=== PATIENT | female | born 1960 | race Caucasian/White ===

== ENCOUNTER 2018-09-25 16:37 | Outpatient (REF) | payer BC, SELFPAY ==
[2018-09-25 21:01] LABS: Abs Immature Grans 0.03 k/cumm (0.0-0.09); Absolute Basophil Count 0.05 k/cumm (0.0-0.2); Absolute Eosinophil Count 0.14 k/cumm (0.0-0.7); Absolute Monocyte Count 0.99 k/cumm (0.11-0.7); Absolute Neutrophil Count 7.16 k/cumm (1.2-6.7); Basophils % 0.5; Eosinophils % 1.4; HCT 43.3 % (36.0-46.0); HGB 14.8 g/dL (12.0-15.5); Immature Grans % 0.3; Lymphocytes % 18.5; Mean Corp. HGB Concentration 34.2 g/dL (32.0-36.0); Mean Corpuscular Hemoglobin 30.5 pg (27.0-33.0); Mean Corpuscular Volume 89.3 fL (80-95); Mean Platelet Volume 12.1 fL (8.0-11.0); Monocytes % 9.6; Neutrophils % 69.7; Platelet Count 215 x1000/uL (130-400); RBC 4.85 m/cumm (4.00-5.20); RBC Distribution Width 14.1 % (11.7-14.6); White Blood Cell Count 10.27 k/cumm (4.4-10.8)
[2018-09-25 21:31] LABS: Anion Gap 11.6 mmol/L (3-11); BUN 22 mg/dL (7-18); CO2 25.4 mmol/L (21.0-32.0); CREATININE 0.92 mg/dL (0.55-1.02); Calcium 9.8 mg/dL (8.5-10.1); Chloride 102 mmol/L (98-107); Glucose 190 mg/dL (70-100); Potassium 3.8 mmol/L (3.5-5.1); Sodium 139 mmol/L (136-145); Uric Acid 7.5 mg/dL (2.6-6.0)
== END 2018-09-25 16:57 ==
LOC: NCHCN 16:37
PROVIDERS: PCP Internal Medicine; Visit Provider Internal Medicine
DX: M10.9 Gout, unspecified (principal)
CPT/HCPCS: 80048; 84550; 85025

== ENCOUNTER 2019-01-06 12:10 | Outpatient (CLI) | payer BC, SELFPAY ==
--- NOTE | 2019-01-06 10:28 | DI.MAMMO_ITS ---
SYMPTOMS/DIAGNOSIS: SCREENING, Z12.31 MAMMOGRAMS: Mammograms were interpreted according to the usual protocol including computer analysis with CAD system, tomosynthesis and C view imaging. The breast tissue is of moderate radiodensity. There is no evidence of a mass. There are no suspicious calcifications and there has been no significant interval change when compared with prior images. SUMMARY: No evidence of malignancy, category 1. Yearly screening mammography is recommended. Breast density category B. SA ASSESSMENT OF FINDINGS: Negative. Category 1. Patient will receive a letter notifying them of these results. BI-RADS category B. There are scattered areas of fibroglandular density.
== END 2019-01-06 12:30 ==
PROVIDERS: PCP Internal Medicine; Visit Provider Nurse Practitioner Family
DX: Z12.31 Encounter for screening mammogram for malignant neoplasm of breast (principal)
CPT/HCPCS: 77063; 77067

== ENCOUNTER 2019-01-15 14:49 | Outpatient (CLI) | payer BC, SELFPAY ==
[2019-01-15 15:23] LABS: Abs Immature Grans 0.04 k/cumm (0.0-0.09); Absolute Basophil Count 0.05 k/cumm (0.0-0.2); Absolute Eosinophil Count 0.21 k/cumm (0.0-0.7); Absolute Lymphocyte Count 1.68 k/cumm (1.2-3.4); Absolute Monocyte Count 0.61 k/cumm (0.11-0.7); Absolute Neutrophil Count 4.23 k/cumm (1.2-6.7); Basophils % 0.7; Eosinophils % 3.1; HCT 41.8 % (36.0-46.0); HGB 14.2 g/dL (12.0-15.5); Immature Grans % 0.6; Lymphocytes % 24.6; Mean Corpuscular Hemoglobin 30.6 pg (27.0-33.0); Mean Corpuscular Volume 90.1 fL (80-95); Monocytes % 8.9; Neutrophils % 62.1; Platelet Count 213 x1000/uL (130-400); RBC 4.64 m/cumm (4.00-5.20); White Blood Cell Count 6.82 k/cumm (4.4-10.8)
[2019-01-15 15:31] LABS: PROTEIN 35.5 mg/dL
[2019-01-15 15:46] LABS: Albumin 3.9 g/dL (3.4-5.0); Anion Gap 9.8 mmol/L (3-11); BUN 20 mg/dL (7-18); CO2 27.2 mmol/L (21.0-32.0); CREATININE 0.78 mg/dL (0.55-1.02); Calcium 9.6 mg/dL (8.5-10.1); Chloride 102 mmol/L (98-107); Glucose 132 mg/dL (70-100); Potassium 4.4 mmol/L (3.5-5.1); Sodium 139 mmol/L (136-145)
[2019-01-15 16:01] LABS: COMMENT (LAB VIEW ONLY) 86.14 mg/dL; Prot/Crea Ur Ratio 0.41
== END 2019-01-15 15:09 ==
PROVIDERS: PCP Internal Medicine; Visit Provider Internal Medicine Nephrology
DX: N02.2 Recurrent and persistent hematuria with diffuse membranous glomerulonephritis (principal)
CPT/HCPCS: 36415; 80048; 82040; 82565; 84156; 85025; 86480

== ENCOUNTER 2019-02-24 11:40 | Outpatient (REF) | payer BC, SELFPAY ==
[2019-02-24 22:44] LABS: Hemoglobin A1C 7.5 % (4.5-6.2)
== END 2019-02-24 12:00 ==
LOC: NCHCN 11:40
PROVIDERS: PCP Internal Medicine; Visit Provider Internal Medicine
DX: R73.03 Prediabetes (principal)
CPT/HCPCS: 83036

== ENCOUNTER 2019-03-13 03:41 | Outpatient (CLI) | payer BC, SELFPAY ==
--- NOTE | 2019-03-13 09:00 | DIABASSESS_ITS ---
DESCRIPTION/ASSESSMENT: Gabbie Plasencia presents for diabetes self management focused on nutrition and prevention. She has had a recent increase in A1c from 6.3 to 7.5. She wishes to avoid medication for diabetes. Gabbie admits to being an emotional eater and has participated in OA and found it helpful, but difficult to get to meetings. She recognizes that her physical activity has decreased, and she needs to look at her portions. She has coffee, egg or cinnamon raising toast with buter for breakfast; tuna sandwich and fruit for lunch; salad, vegetable, starch, chicken or fish for supper. She snacks on cheese and almonds. She wants something to eat at 8:30PM. She admits to binge foods such as chips. She drinks selzer water. Gabbie walks 20 minutes most days and gets 10,000 steps 4 of 7 days a week. She is limited by leg pain which also affects her sleep. Leg pain is increased when she has over-done movement. INTERVENTION: Gabbie feels she knows the information but is interested in discussing her patterns and habits. Food Guidelines - reviewed food guide focused on adding vegetables for snacks. Discussed hunger/fullness and starting with normal portions. Physical Activity - discussed documenting her physical activity on a calendar to make her accomplishments concrete. Monitoring: She does not wish to monitor blood sugars at this time. Explained how it can be helpful. She will consider if A1c does not improve. ACTION PLAN: Track physical activity daily on calendar Watch carbohydrate intake; attempt to decrease Individual MN/T __2__ units billed TIME IN: 900 OUT: 0940 No DM group education series being offered at this time.
== END 2019-03-13 04:01 ==
PROVIDERS: PCP Internal Medicine; Visit Provider Dietitian, Registered
DX: E11.9 Type 2 diabetes mellitus without complications (principal); Z71.3 Dietary counseling and surveillance
CPT/HCPCS: 97802

== ENCOUNTER 2019-11-23 11:35 | Outpatient (REF) | payer BC, SELFPAY ==
[2019-11-23 22:29] LABS: BUN 24 mg/dL (7-18); CREATININE 0.82 mg/dL (0.55-1.02); Calcium 9.7 mg/dL (8.5-10.1); Chloride 104 mmol/L (98-107); Cholesterol 168 mg/dL (<200); Glucose 140 mg/dL (74-106); HDL Cholesterol 40 mg/dL (40-60); Sodium 140 mmol/L (136-145); Triglyceride 422 mg/dL (<150)
[2019-11-23 22:41] LABS: PROTEIN 45.9 mg/dL
[2019-11-23 22:42] LABS: COMMENT (LAB VIEW ONLY) 132.28 mg/dL; Prot/Crea Ur Ratio 0.34
[2019-11-23 22:44] LABS: LDL CHOLESTEROL 83 mg/dL (<100)
== END 2019-11-23 11:55 ==
LOC: NCHCN 11:35
PROVIDERS: PCP Internal Medicine; Visit Provider Internal Medicine
DX: E11.9 Type 2 diabetes mellitus without complications (principal); I10 Essential (primary) hypertension; E66.9 Obesity, unspecified
CPT/HCPCS: 80048; 80061; 83721; 82565; 83036; 84156

== ENCOUNTER 2019-12-01 00:23 | Outpatient (CLI) | payer BC, SELFPAY ==
[2019-12-01] MEDS: Normal Saline Flush 10 ML SYR IVP (10:33)
[2019-12-01] MEDS: Gadoterate meglumine 20 ML VIAL 16 ML IVP (10:34)
--- NOTE | 2019-12-01 10:50 | DI.MRI_ITS ---
EXAM: MR BRAIN WO/W CLINICAL HISTORY: MULTIPLE SCLEROSIS, G34, MONITOR TECHNIQUE: Multiplanar multisequence MRI of the brain was performed. CONTRAST MATERIAL: IV Contrast: 16 ML of Dotarem contrast administered. COMPARISON: MRI - BRAIN W/WO CONTRAST from 01/07/2013 MRI - BRAIN W/WO CONTRAST from 09/17/2017 FINDINGS: VENTRICLES AND EXTRA AXIAL SPACES: Normal in size and morphology for the patient's age. HEMORRHAGE: None. CEREBRAL PARENCHYMA: No focus of restricted diffusion to suggest acute infarct. 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 No space-occupying lesion identified. There are again se en multiple areas of hyperintense T2 signal predominantly in the periventricular white matter. There are areas in the bishop radiata which appear slightly larger and more confluent compared to the prio r examination. No new lesions are identified. MIDLINE SHIFT: None. BRAINSTEM/CEREBELLUM: Normal. CALVARIUM: Normal. ENHANCEMENT: No suspicious enhancement identified. VISUALIZED PARANASAL SINUSES/MASTOIDS: Clear. [place]: Normal flow void. [place]IT[place]: Unremarkable. OTHER FINDINGS: None. IMPRESSION: Multiple foci of T2 hyperintensity in the white matter consistent with the patient's known diagnosis of MS. There are areas in the bishop radiata which appear slightly larger and more confluent compared to the prior examinations. No new or enhancing lesions are identified. DATA REPOSITORY:
== END 2019-12-01 00:43 ==
PROVIDERS: PCP Internal Medicine; Visit Provider Psychiatry & Neurology Neurocritical Care
DX: G35 Multiple sclerosis (principal); R90.82 White matter disease, unspecified
CPT/HCPCS: 70553; 82565

== ENCOUNTER 2020-01-27 09:56 | Outpatient (REF) | payer BC, SELFPAY ==
[2020-01-27 20:59] LABS: Anion Gap 7.5 mmol/L (3-11); BUN 21 mg/dL (7-18); CO2 28.5 mmol/L (21.0-32.0); CREATININE 0.95 mg/dL (0.55-1.02); Calcium 9.9 mg/dL (8.5-10.1); Chloride 103 mmol/L (98-107); Glucose 150 mg/dL (74-106); Potassium 4.3 mmol/L (3.5-5.1); Sodium 139 mmol/L (136-145)
== END 2020-01-27 10:16 ==
LOC: NCHCN 09:56
PROVIDERS: PCP Internal Medicine; Visit Provider Internal Medicine
DX: I10 Essential (primary) hypertension (principal)
CPT/HCPCS: 80048

== ENCOUNTER 2020-02-23 11:00 | Outpatient (REF) | payer BC, SELFPAY ==
--- NOTE | 2020-02-23 10:30 | PAPFT_PTH ---
PATIENT: Marcie Plasencia LOC: [facility] U#:[id number] AGE/SX: 59/F ROOM: RE02/23/[address]: NAMITA Mcguire : 1960 BED: DIS: 02/23/2020 SPEC #: [id number] RECD: 02/23/20 13:11 STATUS: LASHELL REQ #: [id number] HERNANDO: 02/23/20 10:[address]: Citlaly Pa DEPT: [facility] Cytology RECD BY: Carolina Choe ENTERED: 02/23/20 13:12 SP TYPE: PAPFT OTHR DR: Raul Nash Tissues: 1 - CX/ENDOCX FOR PAP SMEARS Procedures: PAP THIN PREP/UVM Screening HPV DNA PROBE Comments: [id number]
== END 2020-02-23 11:20 ==
LOC: LBN 11:00
PROVIDERS: PCP Internal Medicine; Visit Provider Nurse Practitioner Family
DX: Z12.4 Encounter for screening for malignant neoplasm of cervix (principal)
CPT/HCPCS: 88142; 87624

== ENCOUNTER 2020-07-14 04:02 | Outpatient (CLI) | payer BC, SELFPAY ==
[2020-07-14 17:17] LABS: Abs Immature Grans 0.06 10^3/uL (0.0-0.06); Absolute Basophil Count 0.09 10^3/uL (0.0-0.2); Absolute Eosinophil Count 0.22 10^3/uL (0.0-0.7); Absolute Lymphocyte Count 1.52 10^3/uL (1.2-3.4); Absolute Monocyte Count 0.75 10^3/uL (0.1-0.8); Basophils % 1.2; HCT 40.4 % (36.0-46.0); HGB 13.6 g/dL (11.2-15.7); Immature Grans % 0.8; Lymphocytes % 20.7; MCH 30.9 pg (27.0-33.0); MCHC 33.7 % (32.0-36.0); MCV 91.8 fL (80-95); MPV 11.4 fL (8.0-11.0); Monocytes % 10.2; Neutrophils % 64.1; Nucleated RBC 0 %; Platelet Count 232 10^3/uL (130-400); RDW 13.2 % (11.7-14.6); RDW-SD 44.9 fL; WBC 7.34 10^3/uL (4.4-10.8)
[2020-07-14 17:34] LABS: PROTEIN 25.1 mg/dL
[2020-07-14 17:48] LABS: COMMENT (LAB VIEW ONLY) 39.92 mg/dL; Prot/Crea Ur Ratio 0.62
[2020-07-14 18:21] LABS: Albumin 4.1 g/dL (3.4-5.0); Anion Gap 8.1 mmol/L (3-11); BUN 18 mg/dL (7-18); CO2 25.9 mmol/L (21.0-32.0); CREATININE 0.89 mg/dL (0.55-1.02); Calcium 9.7 mg/dL (8.5-10.1); Chloride 102 mmol/L (98-107); Glucose 211 mg/dL (74-106); Potassium 3.8 mmol/L (3.5-5.1); Sodium 136 mmol/L (136-145)
[2020-07-19 12:44] LABS: Misc Referral (MAYO) See Comments
== END 2020-07-14 04:22 ==
PROVIDERS: PCP Internal Medicine; Visit Provider Internal Medicine Nephrology
DX: N02.2 Recurrent and persistent hematuria with diffuse membranous glomerulonephritis (principal)
CPT/HCPCS: 36415; 80048; 83520; 86255; 82040; 82565; 84156; 85025

== ENCOUNTER 2020-08-03 13:40 | Outpatient (REF) | payer BC, SELFPAY ==
[2020-08-08 13:57] LABS: Patient Race White; SARS-CoV-2 RNA Undetected (Undetected); SARS-CoV-2 Specimen Source Nasal
== END 2020-08-03 14:00 ==
LOC: NCHCN 13:40
PROVIDERS: PCP Internal Medicine; Visit Provider Internal Medicine
DX: Z20.828 Contact with and (suspected) exposure to other viral communicable diseases (principal)
CPT/HCPCS: U0003

== ENCOUNTER 2020-08-11 01:17 | Outpatient (CLI) | payer BC, SELFPAY ==
--- NOTE | 2020-08-11 07:30 | DI.MAMMO_ITS ---
EXAM: MG MAMMO SCREENING CLINICAL HISTORY: screening,Z12.39 TECHNIQUE: Bilateral full field digital CC and MLO mammographic images were obtained with 3D tomosyn thesis and utilizing computer aided detection (CAD). COMPARISON: Available for comparison. FINDINGS: Masses/Architectural Distortion: There is again seen an asymmetric density in the central left breast on the mediolateral oblique view. No suspicious masses or areas of architectural distortion are see n. Microcalcifications: No suspicious pleomorphic-type are seen. Skin Thickening/Nipple Retraction: None. IMPRESSION: 1. No significant interval change with no specific features of malignancy noted. 2. Unless there is more urgent need, screening mammography is recommended, as per [place] [employer] guidelines. BI-RADS Category 2 - Benign Findings Breast Density - Category B - Scattered areas of fibroglandular density A negative radiographic report should not delay biopsy if a dominant or clinically suspicious mass is present. Up to ten percent of cancers are not identified on mammography. A negative report may reinforce clinical impression. Adenosis and dense breasts may obscure an underlying neoplasm. False positive reports average 6 to 10%. Patient will receive a letter notifying them of these results.
== END 2020-08-11 01:37 ==
PROVIDERS: PCP Internal Medicine; Visit Provider Nurse Practitioner Family
DX: Z12.31 Encounter for screening mammogram for malignant neoplasm of breast (principal); R92.8 Other abnormal and inconclusive findings on diagnostic imaging of breast
CPT/HCPCS: 77063; 77067

== ENCOUNTER 2021-03-09 09:32 | Outpatient (REF) | payer BC, SELFPAY ==
[2021-03-09 13:21] LABS: Calculated LDL 50 mg/dL (<100); Cholesterol 151 mg/dL (<200); HDL Cholesterol 53 mg/dL (40-60); Triglyceride 244 mg/dL (<150)
== END 2021-03-09 09:33 | disposition home or self-care (01) ==
LOC: NCHCN 09:32
PROVIDERS: PCP Internal Medicine; Visit Provider Internal Medicine
DX: Z13.220 Encounter for screening for lipoid disorders (principal)
CPT/HCPCS: 80061

== ENCOUNTER 2021-08-15 00:52 | Outpatient (CLI) | payer BC, SELFPAY ==
--- NOTE | 2021-08-15 15:46 | DI.MAMMO_ITS ---
Exam(s) MAMMO SCREENING EXAM: MAMMO SCREENING CLINICAL HISTORY: screening,Z12.39 TECHNIQUE: Mammograms were interpreted according to the usual protocol including computer analysis w ColoWrap CAD system, tomosynthesis and C-view imaging. COMPARISON: FINDINGS: Breasts are of moderate density with fairly symmetrical distribution of fibroglandular tissue. No do minant mass is identified in either breast. There is an area of nodularity projected in the lateral retroareolar portion of the left breast about 4-5 cm from the nipple in both CC and MLO projections. This has probably lobulated margins and contains multiple microcalcifications, faint nodularity was present on prior examination of July 2020 but there is increased size of the area of nodularity a nd increased number of microcalcifications, which are indeterminate in morphology. No other lesion identified in either breast, no other change seen. Additional evaluation with magnification spot compression views and ultrasound of the left breast req uested to evaluate the possibility of malignancy. IMPRESSION: Additional mammographic views left breast and left breast ultrasound requested as described above. BI-RADS Category 0 - Assessment Incomplete: Need additional imaging evaluation Breast Density - Category B - Scattered areas of fibroglandular density
== END 2021-08-15 01:12 ==
PROVIDERS: PCP Internal Medicine; Visit Provider Nurse Practitioner Family
DX: Z12.31 Encounter for screening mammogram for malignant neoplasm of breast (principal); R92.8 Other abnormal and inconclusive findings on diagnostic imaging of breast
CPT/HCPCS: 77063; 77067

== ENCOUNTER 2021-09-08 02:17 | Outpatient (CLI) | payer BC, SELFPAY ==
--- NOTE | 2021-09-08 | DI.US_ITS ---
Exam(s) MG MAMMO SCREEN CALL BACK UNI US BREAST LT LIMITED EXAM: MG MAMMO SCREEN CALL BACK UNI and U/S breast LT limited CLINICAL HISTORY: F/U TO ABNL MAMMO, NODULARITY LT BREAST. TECHNIQUE: Craniocaudal and mediolateral oblique Full Field Digital Mammography views of the left br east with Computer Aided Diagnosis followed by Tomosynthesis and left breast ultrasound. COMPARISON: Priors available for comparison. FINDINGS: Mammography/Tomosynthesis: Masses/Architectural Distortion: There has been no change in size of an ovoid density in the retroare olar region of the left breast. There are punctate calcifications seen in the retroareolar region of the left breast which appears stable including some associated with the nodule. Microcalcifictions: No suspicious pleomorphic-type are seen. Skin Thickening/Nipple Retraction: None. Left breast US: Targeted left breast ultrasound was performed. Echotexture: Normal appearance of the glandular tissue. Shadowing: No suspicious foci. Cyst: There is a collection of cysts at 3 o'clock 4 cm from the nipple measuring 0.3 x 0.2 x 0.4 cm i n aggregate. Solid lesions: None seen. Ductal dilation: None. IMPRESSION: 1. No deaf evidence of malignancy is noted. 2. A follow-up left mammogram in 6 months is recommended to monitor stability.. 3. The findings were discussed with the patient on the date of the examination. BI-RADS Category 3 - 6 month - Probably Benign Finding: Recommend follow-up imaging in 6 months Breast Density - Category B - Scattered areas of fibroglandular density Breast density Category C or D implies that the patient has dense breast tissue. Dense breast tissue can make it harder to find cancer on a mammogram. Dense breast tissue is also associated with an incr eased risk of breast cancer. This information about the result of the mammogram report was provided to the patient to raise their awareness. Use this report when you speak with the patient about their risks for breast cancer, which includes their family history. At that time, you may recommend additional screening tests (Ultrasoun d or MRI) as these tests may add significant information. A negative radiographic report should not delay biopsy if a dominant or clinically suspicious mass is present. Up to ten percent of cancers are not identified on mammography. A negative report may reinforce clinical impression. Adenosis and dense breasts may obscure an underlying neoplasm. False positive reports average 6 to 10%. Patient will receive a letter notifying them of these results.
== END 2021-09-08 02:37 ==
PROVIDERS: PCP Internal Medicine; Visit Provider Nurse Practitioner Family
DX: Z12.31 Encounter for screening mammogram for malignant neoplasm of breast (principal); R92.8 Other abnormal and inconclusive findings on diagnostic imaging of breast
CPT/HCPCS: 76642; 77063; 77067

== ENCOUNTER 2021-11-06 10:26 | Outpatient (REF) | payer BC, SELFPAY ==
[2021-11-06 19:13] LABS: COMMENT (LAB VIEW ONLY) 93.31 mg/dL; PROTEIN 494.3 mg/dL; Prot/Crea Ur Ratio 5.29
== END 2021-11-06 10:27 | disposition home or self-care (01) ==
LOC: NCHCN 10:26
PROVIDERS: PCP Internal Medicine; Visit Provider Internal Medicine
DX: E11.9 Type 2 diabetes mellitus without complications (principal)
CPT/HCPCS: 82565; 84156

== ENCOUNTER 2021-11-13 16:15 | Outpatient (REF) | payer BC, SELFPAY ==
[2021-11-13 14:41] LABS: Anion Gap 10.6 mmol/L (3-11); BUN 20 mg/dL (7-18); CO2 23.4 mmol/L (21.0-32.0); CREATININE 0.8 mg/dL (0.55-1.02); Calcium 9.3 mg/dL (8.5-10.1); Chloride 105 mmol/L (98-107); Glucose 147 mg/dL (74-106); Potassium 4.3 mmol/L (3.5-5.1); Sodium 139 mmol/L (136-145)
== END 2021-11-13 16:16 | disposition home or self-care (01) ==
LOC: NCHCN 16:15
PROVIDERS: PCP Internal Medicine; Visit Provider Internal Medicine
DX: E11.9 Type 2 diabetes mellitus without complications (principal); I10 Essential (primary) hypertension
CPT/HCPCS: 80048

== ENCOUNTER 2022-01-30 01:38 | Outpatient (CLI) | payer BC, SELFPAY ==
[2022-01-30 13:08] LABS: Abs Immature Grans 0.04 10^3/uL (0.0-0.06); Absolute Basophil Count 0.08 10^3/uL (0.0-0.2); Absolute Eosinophil Count 0.35 10^3/uL (0.0-0.7); Absolute Lymphocyte Count 1.87 10^3/uL (1.2-3.4); Absolute Monocyte Count 0.55 10^3/uL (0.1-0.8); Absolute Neutrophil Count 4.96 10^3/uL (1.2-6.7); Eosinophils % 4.5; HCT 43.3 % (36.0-46.0); HGB 14.3 g/dL (11.2-15.7); Immature Grans % 0.5; Lymphocytes % 23.8; MCH 29.7 pg (27.0-33.0); MCV 90 fL (80-95); MPV 11.6 fL (8.0-11.0); Neutrophils % 63.2; Platelet Count 236 10^3/uL (130-400); RBC 4.82 10^6/uL (3.93-5.22); RDW 13.2 % (11.7-14.6); RDW-SD 43.6 fL; WBC 7.85 10^3/uL (4.4-10.8)
[2022-01-30 13:08] LABS: Bilirubin Negative (Negative); Blood Small (Negative); Clarity Clear (Clear); Glucose Negative (Negative); Ketones Negative (Negative); Leukocyte Esterase Negative (Negative); Nitrite Negative (Negative); Specific Gravity 1.025 (1.005-1.025); Urobilinogen 0.2 EU/dL (Up TO 0.2); pH 5.5 (5-8)
[2022-01-30 13:16] LABS: Epithelial Cells Few HPF (Negative); RBC 0-2 HPF (0-2)
[2022-01-30 13:17] LABS: Bacteria Few HPF (Negative); C & S Indicated? Yes; Crystals Negative HPF (Negative); Mucus Moderate (Negative); Other Cells Rare Renal (Negative)
[2022-01-30 14:37] LABS: Albumin 3.1 g/dL (3.4-5.0); Anion Gap 12.1 mmol/L (3-11); BUN 19 mg/dL (7-18); CO2 25.9 mmol/L (21.0-32.0); CREATININE 0.8 mg/dL (0.55-1.02); Calcium 8.7 mg/dL (8.5-10.1); Chloride 104 mmol/L (98-107); Glucose 180 mg/dL (74-106); Potassium 3.8 mmol/L (3.5-5.1); Sodium 142 mmol/L (136-145)
[2022-01-30 14:49] LABS: COMMENT (LAB VIEW ONLY) 132.93 mg/dL
[2022-01-30 14:57] LABS: PROTEIN > 1000.0 mg/dL
[2022-02-02 16:48] LABS: Phospholipase A2 Receptor IFA Positive (Negative); Phospholipase A2Receptor ELISA <2 RU/mL
== END 2022-01-30 01:39 | disposition home or self-care (01) ==
PROVIDERS: PCP Internal Medicine; Visit Provider Nurse Practitioner
DX: N02.2 Recurrent and persistent hematuria with diffuse membranous glomerulonephritis (principal); N18.9 Chronic kidney disease, unspecified
CPT/HCPCS: 36415; 80048; 83520; 86255; 81003; 81015; 82040; 82565; 84156; 85025; 87086

== ENCOUNTER 2022-04-14 12:35 | Emergency (ER) | payer BC, SELFPAY ==
[2022-04-14] VITALS (8 sets, daily range): BP systolic 114–133; BP diastolic 70–83; PULSE 88–111; RESP 13–21; TEMP 37.2; O2SAT 91–95
--- NOTE | 2022-04-14 13:15 | DI.RAD_ITS ---
Exam(s) XR HUMERUS LT EXAM: XR HUMERUS LT CLINICAL HISTORY: fall pushed by horse. TECHNIQUE: 2D digital imaging was performed of the left humerus. One images were obtained. Lateral views were obtained. COMPARISON: CR,XR XR SHOULDER LT COMPLETE 2+V from 04/14/2022 FINDINGS: BONES: The comminuted fracture of the greater tuberosity is present. SOFT TISSUE: Normal. IMPRESSION: This is a single lateral view which is limited due to the overlying body. The greater tuberosity fra cture appears visualized. DATA REPOSITORY: RADIATION DOSE DELIVERED:
--- NOTE | 2022-04-14 13:15 | DI.RAD_ITS ---
Exam(s) XR SHOULDER LT COMPLETE 2+V EXAM: XR SHOULDER LT COMPLETE 2+V CLINICAL HISTORY: pushed over by horse, concern for dislocation/fxt. TECHNIQUE: 2D digital imaging was performed of the left shoulder. Three images were obtained. AP, Grashey, and Y-view views were obtained. COMPARISON: No exams were available for comparison FINDINGS: BONES: There is an acute comminuted and displaced fracture of the greater tuberosity. No bony destru ctive lesion is seen. JOINTS: There is an anterior left shoulder dislocation. Mild degenerative changes are seen at the ac romioclavicular joint. SOFT TISSUE: Normal. IMPRESSION: There is a left anterior shoulder dislocation with a comminuted displaced fracture involving the grea ter tuberosity. DATA REPOSITORY: RADIATION DOSE DELIVERED:
--- NOTE | 2022-04-14 13:15 | DI.RAD_ITS ---
Exam(s) XR FOREARM LT EXAM: XR FOREARM LT CLINICAL HISTORY: fall pushed by horse. TECHNIQUE: 2D digital imaging was performed of the left forearm. Two views were obtained. AP and l ateral views were obtained. COMPARISON: No exams were available for comparison FINDINGS: BONES: No acute fracture is present. No bony destructive lesion is seen. Visualized portion of elbow and wrist joints are unremarkable. SOFT TISSUE: Normal. IMPRESSION: Unremarkable radiographs of the left forearm. DATA REPOSITORY: RADIATION DOSE DELIVERED:
--- NOTE | 2022-04-14 13:26 | ED.GENADUL_ITS ---
Discharge Plan Disposition Patient Disposition: HOME Condition: Improving Discharge Details Clinical Impression: Dislocated shoulder, Hill Sachs deformity Primary Care Provider: Raul Nash ED Provider: Logan Valle Home Meds and New Rx's Prescriptions: No Action atorvastatin 10 mg tablet 10 mg PO DAILY losartan 100 mg tablet 100 mg PO DAILY amlodipine 10 mg tablet 10 mg PO DAILY cholecalciferol (vitamin D3) 25 mcg (1,000 unit) capsule 25 mcg PO DAILY bupropion HCl 150 mg tablet extended release 24 hr 150 mg PO QAM furosemide 20 mg tablet 20 mg PO DAILY metformin 500 mg tablet 500 mg PO BID Discharge Instructions Instructions: Shoulder Dislocation (ED) Additional Instructions: Please follow-up with orthopedic surgery as scheduled. Please return to the emergency department develop worsening pain change in color temperature strength or sensation of your arm or develop any other abnormal symptoms. Medical Decision Making 61-year-old female presents after being knocked over by a horse, with standing on the ground knocked over onto her left side, landed on her left shoulder, pain to left shoulder, extremity in splint; neurovascular exam of limb intact, range of motion of fingers and wrist intact range of motion at shoulder limited by theodore n, median radial ulnar nerve distribution intact sensory, radial pulse intact, warm well perfused, alert and oriented no thoracoabdominal trauma no head or neck injury. Concern for left shoulder dislocation versus proximal humeral fracture versus contusion. Patient was given fentanyl in the field feeling comfortable at the moment, will perform x-ray, will dose pain meds as needed close reassessment 16: 04 attempted reduction with analgesia and anxiolysis using fentanyl and Ativan as well as lidocaine 1% intra-articular injection, unsuccessful due to pain. Decision was made to perform procedural sedation under propofol 1 mg/kg, initial bolus of 0.5 mg/kg given patient still feeling painful stimuli and alert and interactive, the remaining 0.5 mg/kg was administered with appropriate level of sedation, countertraction with a sheet was applied, downward traction to affected limb and external rotation was applied, palpable clunk and palpable and visual improvement noted to left shoulder. Patient placed in sling, awaiting confirmatory postreduction x-ray. Once patient returns to baseline will be discharged home into family's custody and will be given orthopedic follow-up within the next week HPI General Date/Time Provider Initiated Documentation: 04/14/22 12:54 . HPI Narrative: 61-year-old female endorses being knocked over by a horse that she was cleaning today, fell onto her left shoulder no loss of conscious, pain to proximal left shoulder. Denies blood thinner use. Denies other trauma. Related Data Home Medications Medication Instructions Recorded Confirmed bupropion HCl 150 mg 24 hr tablet, 150 mg PO QAM 02/23/20 04/14/22 extended release furosemide 20 mg tablet 20 mg PO DAILY 02/23/20 04/14/22 amlodipine 10 mg tablet 10 mg PO DAILY 07/04/21 04/14/22 atorvastatin 10 mg tablet 10 mg PO DAILY 07/04/21 04/14/22 cholecalciferol (vitamin D3) 25 25 mcg PO DAILY 07/04/21 04/14/22 mcg (1,000 unit) capsule losartan 100 mg tablet 100 mg PO DAILY 07/04/21 04/14/22 metformin 500 mg tablet 500 mg PO BID 04/11/22 04/14/22 Allergies Allergy/AdvReac Type Severity Reaction Status Date / Time No Known Drug Allergies Allergy Verified 04/14/22 12:47 General Stated Complaint: Orthopedic JAKE: 4 Review of Systems Narrative: Review of Systems Constitutional: negative Eyes: negative ENT: negative Cardiovascular: negative Respiratory: negative Gastrointestinal: negative : negative Musculoskeletal: Left shoulder pain Skin: negative Neurologic: negative Psych: negative PFSH All Active Problems (Updated 04/14/22 @ 16:59 by Logan Valle MD) Dislocated shoulder (Acute) Hill Sachs deformity (Acute) Chronic kidney disease (Chronic) Skin lesion (Acute) Lateral side of her left great toe 96 Diabetes (Chronic) Elevated blood sugar (Acute) Nephropathy (Acute 08/07/13) Multiple sclerosis (Acute 02/28/12) Unspecified essential hypertension (Acute 08/07/13) Medical History (Updated 04/14/22 @ 16:59 by Logan Valle MD) Anxiety and depression Surgical History (Updated 07/09/18 @ 14:34 by [employer] DC) section X 2 Family History Mother Diabetes Heart disease Father Essential hypertension Kidney stones Grandmother Breast cancer maternal Maternal Aunt Breast cancer maternal Social History (Updated 09/02/18 @ 14:37 by Citlaly Pa NP) Smoking/Tobacco Use Status: Former Tobacco Use Smoking risk assessment performed?: Yes Substance use type: does not use current occupation: [employer] Do you feel safe at home: Yes Do you feel safe in your relationship?: Yes History History 3 Para 2 Hx # Term Pregnancies Multiple births Hx # Pregnancies Ectopic pregnancies AB induced Hx Number of Living Children AB spontaneous Exam Narrative Exam Narrative: Physical Examination General: alert, awake, cooperative, resting comfortably, no acute distress HEENT: normocephalic, atraumatic; PERRL, EOM intact, conjunctiva normal; no nasal discharge; moist mucous membranes, oral and pharyngeal mucosa normal, tolerating secretions Neck: supple, trachea midline; full ROM Chest: normal to inspection Respiratory: normal respiratory effort, speaking in full sentences, clear to auscultation, no wheezing, rales or rhonchi Cardiac: regular rate, regular rhythm, S1S2 intact, no murmurs rubs or gallops GI: abdomen soft, non-tender, non-distended; no palpable mass or hepatosplenomegaly Skin: no lesions, rashes or trauma appreciated Neuro: AAOx3, normal speech, moving all extremities Extremities: Left upper extremity in sling, lack of fullness to the left shoulder concerning for dislocation, radial pulse intact median radial ulnar nerve distribution sensation intact, warm well perfused extremity Psych: Appropriate mood and affect Course Vital Signs Vital signs: Vital Signs Temperature 37.2 C 04/14/22 12:44 Pulse 95 H 04/14/22 12:44 Respiratory Rate 16 04/14/22 12:44 Blood Pressure 125/73 04/14/22 12:44 Pulse Oximetry 94 04/14/22 12:44 Temperature 37.2 C 04/14/22 12:44 Temperature Source Temporal Artery Scan 04/14/22 12:44 Pulse 95 H 04/14/22 12:44 Respiratory Rate 16 04/14/22 12:44 Respiratory Effort 04/14/22 12:47 Blood Pressure 125/73 04/14/22 12:44 Blood Pressure Position Supine 04/14/22 12:44 Pulse Oximetry 94 04/14/22 12:44 Oxygen Delivery Method Room Air 04/14/22 12:44 Oxygen Flow Rate 0 04/14/22 12:44 Pain Level 8 04/14/22 12:44 Procedures Procedural Sedation Indication: fracture/dislocation reduction Presedation Evaluation: left shoulder dislocation with hill sachs ASA Class: II Preparation: vehicle monitor technician applied, pulse oximeter, capnometry used, supplemental O2 applied, suction/airway equipment at bedside and IV secured IV Propofol dose (mg): 80 Patient Tolerated Procedure: well Complications: none Interventions: oxygen applied Additional Comments: initial bolus of 40mg given, limited sedation obtained, painful stimuli still present; remaining 40 mg given with appropriate sedation obtained
--- NOTE | 2022-04-14 14:09 | DI.VRAD_ITS ---
PROCEDURE INFORMATION: Exam: XR Left Shoulder Exam date and time: 04/14/2022 1:29 PM Age: 61 years old Clinical indication: Injury or trauma; Other: Pushed over by horse, concern for dislocation/fxt; Dislocation and fracture, traumatic injury; Closed fracture; Shoulder; Left; Humerus; Prior surgery TECHNIQUE: Imaging protocol: Radiologic exam of the Left shoulder. Views: 2 or more views. COMPARISON: CR CHEST 2 VIEWS PA,LAT 19/12/2015 08:02 FINDINGS: Bones/joints: Anterior dislocated shoulder. Comminuted Hill-Sachs fracture. Possible Bankart fracture. Lungs: Reticular markings left base. Soft tissues: Unremarkable. IMPRESSION: 1. Anterior dislocation fracture left shoulder. 2. Reticular markings left base consistent with atelectasis or developing infiltrate. Dictated and Authenticated by: Jazmine Nieto MD. Ordering:JASON Ford MD
--- NOTE | 2022-04-14 14:22 | DI.VRAD_ITS ---
PROCEDURE INFORMATION: Exam: XR Left Forearm Exam date and time: 04/14/2022 1:40 PM Age: 61 years old Clinical indication: Pain; Lower or forearm; Left; Patient HX: Pushed over by horse, concern for dislocation/fxt TECHNIQUE: Imaging protocol: Radiologic exam of the Left forearm. Views: 2 views. COMPARISON: No relevant prior studies available. FINDINGS: Bones/joints: Unremarkable. Soft tissues: Unremarkable. IMPRESSION: No evidence for acute bony injury. If clinical symptoms persist recommend followup film in 7-10 days. Dictated and Authenticated by: Jazmine Nieto MD. Ordering:JASON Ford MD
--- NOTE | 2022-04-14 14:28 | DI.VRAD_ITS ---
PROCEDURE INFORMATION: Exam: XR Left Humerus Exam date and time: 04/14/2022 1:36 PM Age: 61 years old Clinical indication: Pain; Upper arm; Left; Patient HX: Pushed over by horse, concern for dislocation/fxt TECHNIQUE: Imaging protocol: Radiologic exam of the Left humerus. Views: One-view lateral. COMPARISON: CR XR SHOULDER LT COMPLETE 2+V 14/04/2022 13:29 FINDINGS: Limitations: Only a single lateral view was submitted. Bone details obscured by overlying body. There is no AP view of the humerus. Bones/joints: Known anterior dislocation of the humerus. Known Hill-Sachs comminuted fracture deformity. There is no AP view of the distal humerus. Soft tissues: Unremarkable. IMPRESSION: Limited single lateral view of the humerus. Limitations as discussed above. Known Hill-Sachs fracture noted on shoulder view. Dictated and Authenticated by: Jazmine Nieto MD. Ordering:JASON Ford MD
[2022-04-14] MEDS: LORazepam 20 MG/10 ML VIAL IVP (15:00)
[2022-04-14] MEDS: fentaNYL 100 MCG/2 ML VIAL 50 MCG IVP (15:00)
--- NOTE | 2022-04-14 15:45 | DI.RAD_ITS ---
Exam(s) XR SHOULDER LT COMPLETE 2+V EXAM: XR SHOULDER LT COMPLETE 2+V CLINICAL HISTORY: post reduction. TECHNIQUE: 2D digital imaging was performed of the left shoulder. Two images were obtained. AP and Y views were obtained. COMPARISON: CR,XR XR SHOULDER LT COMPLETE 2+V from 04/14/2022 FINDINGS: BONES: There is again seen a comminuted Hill-Sachs fracture. No bony destructive lesion is seen. JOINTS: No dislocation present. There has been successful reduction of the prior anterior shoulder di slocation. SOFT TISSUE: Normal. IMPRESSION: 1. Successful reduction of the prior anterior shoulder dislocation. 2. Comminuted Hill-Sachs fracture. DATA REPOSITORY: RADIATION DOSE DELIVERED:
[2022-04-14] MEDS: Propofol 200 MG/20 ML VIAL 80 MG IVP (15:54)
--- NOTE | 2022-04-14 16:22 | DI.VRAD_ITS ---
PROCEDURE INFORMATION: Exam: XR Left Shoulder Exam date and time: 04/14/2022 3:48 PM Age: 61 years old Clinical indication: Pain; Shoulder; Left; Patient HX: Post reduction TECHNIQUE: Imaging protocol: Radiologic exam of the Left shoulder. Views: 2 or more views. COMPARISON: CR XR SHOULDER LT COMPLETE 2+V 14/04/2022 13:29 FINDINGS: Bones/joints: Post reduction shoulder dislocation. Hill-Sachs fracture. Lungs: Persistent reticular markings left base consistent with atelectasis or developing infiltrate. Soft tissues: Soft tissue swelling. IMPRESSION: 1. Post reduction shoulder. Hill-Sachs fracture deformity. 2. Reticular markings left base consistent with atelectasis or developing infiltrate. Dictated and Authenticated by: Jazmine Nieto MD. Ordering:GRISELDA Figueroa MD
--- NOTE | 2022-04-14 16:24 | NUR.NOTE ---
Conscious sedation performed per protocol, L shoulder reduced by MD, accompanied by 3 RNs and RT. Propofol administered by MD. Pt tolerated procedure well, VSS. L arm placed in sling. at bedside.
== END 2022-04-14 17:34 | disposition home or self-care (01) ==
PROVIDERS: Emergency Provider Emergency Medicine; PCP Internal Medicine
DX: S43.005A Unspecified dislocation of left shoulder joint, initial encounter (principal); S42.292A Other displaced fracture of upper end of left humerus, initial encounter for closed fracture; W55.12XA Struck by horse, initial encounter; Z87.891 Personal history of nicotine dependence
CPT/HCPCS: 23650; 96374; 99285; 73030; 73060; 73090; 99284; J2704; J3010; J3490

== ENCOUNTER 2022-04-18 15:58 | Outpatient (CLI) | payer BC, SELFPAY ==
--- NOTE | 2022-04-18 13:30 | DI.RAD_ITS ---
Exam(s) XR SHOULDER LT COMPLETE 2+V EXAM: XR SHOULDER LT COMPLETE 2+V CLINICAL HISTORY: evaluation post dislocation. TECHNIQUE: 2D digital imaging was performed of the left shoulder. Three images were obtained. AP a nd Y views were obtained. COMPARISON: CR,XR XR SHOULDER LT COMPLETE 2+V from 04/14/2022 FINDINGS: BONES: There is again seen an acute mildly displaced comminuted fracture of the greater tuberosity. There is a very tiny density inferior to the glenoid on the AP view. No bony destructive lesion is s een. JOINTS: No dislocation present. SOFT TISSUE: Normal. IMPRESSION: 1. Comminuted mildly displaced fracture of the greater tuberosity. 2. Tiny density inferior to the glenoid on the AP view. A small avulsed fracture cannot be excluded. DATA REPOSITORY: RADIATION DOSE DELIVERED:
== END 2022-04-18 15:59 | disposition home or self-care (01) ==
LOC: DIORS 15:58
PROVIDERS: PCP Internal Medicine; Referring Provider Internal Medicine; Visit Provider Student in an Organized Health Care Education/Training Program
DX: S42.252A Displaced fracture of greater tuberosity of left humerus, initial encounter for closed fracture (principal); X58.XXXA Exposure to other specified factors, initial encounter
CPT/HCPCS: 73030

== ENCOUNTER → 2022-04-23 01:45 | Outpatient (CLI) | payer BC, SELFPAY ==
--- NOTE | 2022-04-23 07:15 | DI.MRI_ITS ---
Exam(s) MR UPPER JOINT LT WO EXAM: MR UPPER JOINT LT WO CLINICAL HISTORY: traumatic fx/dislocated shoulder,hillsachs deformity,s43.006a,s42.202a,. TECHNIQUE: Multiplanar multisequence MRI was performed. COMPARISON: CR XR SHOULDER LT COMPLETE 2+V from 04/18/2022 FINDINGS: MR examination shoulder was performed according to the usual protocol. There is reportedly history o f traumatic dislocation. There is cortical deformity and abnormal signal of the greater tuberosity of the humerus consistent w ith healing fracture. There is abnormal signal in the distal supraspinatus and infraspinatus tendons with minimal intra tendinous tearing but no evidence of a full-thickness tear or retracted tear. There is abnormal signal in the glenoid anteriorly and there appears to be an anterior inferior gleno id fracture. Exact fracture anatomy is not ideally defined by MR criteria and additional evaluation with CT is suggested to evaluate this region. There is an associated anteroinferior labral tear.. B iceps tendon is normally positioned. Degenerative changes of the AC joint noted. IMPRESSION: Humeral head fracture with associated apparent glenoid fracture, additional evaluation with CT sugges maribeth to evaluate fracture anatomy of the glenoid. No gross rotator cuff tear. DATA REPOSITORY:
== END ==
PROVIDERS: PCP Internal Medicine; Visit Provider Student in an Organized Health Care Education/Training Program
DX: S42.202A Unspecified fracture of upper end of left humerus, initial encounter for closed fracture; S42.142A Displaced fracture of glenoid cavity of scapula, left shoulder, initial encounter for closed fracture; X58.XXXA Exposure to other specified factors, initial encounter
CPT/HCPCS: 73221

== ENCOUNTER → 2022-05-03 01:01 | Outpatient (CLI) | payer BC, SELFPAY ==
--- NOTE | 2022-05-03 10:23 | DI.MAMMO_ITS ---
Exam(s) MAMMO DIAGNOSTIC UNI EXAM: MAMMO DIAGNOSTIC UNI -LEFT CLINICAL HISTORY: 6 mo f/u lt stefanie, r92.8. TECHNIQUE: Both CC and MLO views of the left breast were performed. Also performed 2 additional CC spot mammographic left breast images including spot Mag and spot 3D (dislocated left shoulder). Rani ges were obtained with 3D tomosynthesis technique and utilizing computer aided detection (CAD). COMPARISON: Numerous prior mammograms were reviewed, the most recent being July and August. Ultrasound of 09/08/2021 was also reviewed. FINDINGS: DIAGNOSTIC LEFT BREAST MAMMOGRAM: The previously described nodular density in left breast is again noted, this 7 x 5 millimeter nodule with internal microcalcifications again noted be located approximately 5 cm in from the nipple on the MLO view and similar distance lateral to the nipple on the CC view. This exhibits minimal if any si gnificant change when compared to the recent mammograms and microcalcifications therein also appears similar. No new additional left breast findings. IMPRESSION: Similar mammographic appearance of the partially calcified 7 x 5 millimeter left breast nodule when c ompared to recent studies. I would like to perform complete left breast ultrasound as next step to determine if there is a corre sponding finding on the ultrasound independent of the small group of microcalcifications described at the 3 o'clock position on the prior ultrasound of 09/08/2021. Unfortunately, this patient was not able to stay for the additional ultrasound slot which we created today to accommodate her (apparently because of a prior commitment on her part) and this should be sc heduled. Final report will follow after the ultrasound is performed. The patient was informed of the findings and follow-up recommendations prior to leaving the [facility] today. BI-RADS Category 0 - Assessment Incomplete: Need additional imaging evaluation Breast Density - Category B - Scattered areas of fibroglandular density Breast density Category C or D implies that the patient has dense breast tissue. Dense breast tissue can make it harder to find cancer on a mammogram. Dense breast tissue is also associated with an incr eased risk of breast cancer. This information about the result of the mammogram report was provided to the patient to raise their awareness. Use this report when you speak with the patient about their risks for breast cancer, which includes their family history. At that time, you may recommend additional screening tests (Ultrasoun d or MRI) as these tests may add significant information. A negative radiographic report should not delay biopsy if a dominant or clinically suspicious mass is present. Up to ten percent of cancers are not identified on mammography. A negative report may reinforce clinical impression. Adenosis and dense breasts may obscure an underlying neoplasm. False positive reports average 6 to 10%. Patient will receive a letter notifying them of these results.
== END ==
PROVIDERS: PCP Internal Medicine; Visit Provider Nurse Practitioner Family
DX: R92.8 Other abnormal and inconclusive findings on diagnostic imaging of breast (principal); R92.2 Inconclusive mammogram
CPT/HCPCS: 77061; 77065; G0279

== ENCOUNTER 2022-06-06 08:48 | Outpatient (CLI) | payer BC, SELFPAY ==
--- NOTE | 2022-06-06 08:00 | DI.RAD_ITS ---
Exam(s) XR SHOULDER LT COMPLETE 2+V EXAM: XR SHOULDER LT COMPLETE 2+V CLINICAL HISTORY: f/u fracture left proximal humerus. TECHNIQUE: 2D digital imaging was performed. COMPARISON: CR XR SHOULDER LT COMPLETE 2+V from 04/18/2022 FINDINGS: Two views There has been some healing at the greater tuberosity fracture site. Exhibits improved appearance wh en compared to 04/18/2022. However, recommend future follow-up studies to have both internal and ext ernal rotation views for more accurate comparison of the greater tuberosity status. IMPRESSION: DATA REPOSITORY: RADIATION DOSE DELIVERED:
== END 2022-06-06 08:49 | disposition home or self-care (01) ==
LOC: DIORS 08:48
PROVIDERS: PCP Internal Medicine; Referring Provider Internal Medicine; Visit Provider Student in an Organized Health Care Education/Training Program
DX: S42.202D Unspecified fracture of upper end of left humerus, subsequent encounter for fracture with routine healing (principal); X58.XXXD Exposure to other specified factors, subsequent encounter
CPT/HCPCS: 73030

== ENCOUNTER 2022-06-14 16:50 | Outpatient (REF) | payer BC, SELFPAY ==
[2022-06-14 17:00] LABS: COMMENT (LAB VIEW ONLY) 60.72 mg/dL
[2022-06-14 17:12] LABS: PROTEIN 490.9 mg/dL; Prot/Crea Ur Ratio 8.08
== END 2022-06-14 16:51 | disposition home or self-care (01) ==
LOC: NCHCN 16:50
PROVIDERS: PCP Internal Medicine; Visit Provider Internal Medicine
DX: E11.9 Type 2 diabetes mellitus without complications (principal); J32.9 Chronic sinusitis, unspecified; I10 Essential (primary) hypertension; Z86.16 Personal history of COVID-19; Z87.441 Personal history of nephrotic syndrome
CPT/HCPCS: 82565; 84156

== ENCOUNTER 2022-07-25 08:35 | Outpatient (CLI) | payer BC, SELFPAY ==
--- NOTE | 2022-07-25 08:00 | DI.RAD_ITS ---
Exam(s) XR SHOULDER LT COMPLETE 2+V EXAM: XR SHOULDER LT COMPLETE 2+V INDICATION: left proximal humerus fx f/u. COMPARISON: CR XR SHOULDER LT COMPLETE 2+V from 04/18/2022 CR XR SHOULDER LT COMPLETE 2+V from 06/06/2022 TECHNIQUE: 2D digital imaging was performed. Two views. FINDINGS: There has been continued healing of the greater tuberosity fracture. No new abnormalities are seen. DATA REPOSITORY: RADIATION DOSE DELIVERED:
== END 2022-07-25 08:36 | disposition home or self-care (01) ==
LOC: DIORS 08:35
PROVIDERS: PCP Internal Medicine; Referring Provider Internal Medicine; Visit Provider Student in an Organized Health Care Education/Training Program
DX: S42.202D Unspecified fracture of upper end of left humerus, subsequent encounter for fracture with routine healing (principal); X58.XXXD Exposure to other specified factors, subsequent encounter
CPT/HCPCS: 73030

== ENCOUNTER 2022-08-14 02:57 | Outpatient (CLI) | payer BC, SELFPAY ==
[2022-08-14 11:49] LABS: Bilirubin Negative (Negative); Blood Trace-intact (Negative); Clarity Clear (Clear); Glucose Negative (Negative); Ketones Negative (Negative); Leukocyte Esterase Negative (Negative); Nitrite Negative (Negative); Specific Gravity >= 1.030 (1.005-1.025); Urobilinogen 0.2 EU/dL (Up TO 0.2)
[2022-08-14 12:08] LABS: Bacteria Few HPF (Negative); C & S Indicated? No; Casts Negative LPF (Negative); Crystals Negative HPF (Negative); Epithelial Cells Few HPF (Negative); Mucus Trace (Negative); Other Cells Few Renal (Negative); RBC 0-2 HPF (0-2)
[2022-08-14 12:49] LABS: COMMENT (LAB VIEW ONLY) 51.12 mg/dL
[2022-08-14 13:06] LABS: PROTEIN 757.7 mg/dL; Prot/Crea Ur Ratio 14.82
== END 2022-08-14 02:58 | disposition home or self-care (01) ==
LOC: LBO 02:57
PROVIDERS: PCP Internal Medicine; Visit Provider Nurse Practitioner
DX: N02.2 Recurrent and persistent hematuria with diffuse membranous glomerulonephritis (principal)
CPT/HCPCS: 36415; 80048; 81003; 81015; 82565; 84156; 85025

== ENCOUNTER 2022-08-23 15:41 | Outpatient (CLI) | payer BC, SELFPAY ==
[2022-08-23 12:14] LABS: Abs Immature Grans 0.04 10^3/uL (0.0-0.06); Absolute Basophil Count 0.08 10^3/uL (0.0-0.2); Absolute Eosinophil Count 0.28 10^3/uL (0.0-0.7); Absolute Lymphocyte Count 1.28 10^3/uL (1.2-3.4); Absolute Monocyte Count 0.59 10^3/uL (0.1-0.8); Basophils % 1.1; Eosinophils % 3.7; HCT 40.2 % (36.0-46.0); HGB 13.8 g/dL (11.2-15.7); Immature Grans % 0.5; Lymphocytes % 17.1; MCH 30.9 pg (27.0-33.0); MCHC 34.3 % (32.0-36.0); MCV 90 fL (80-95); Monocytes % 7.9; Neutrophils % 69.7; Platelet Count 253 10^3/uL (130-400); RBC 4.47 10^6/uL (3.93-5.22); RDW 14.2 % (11.7-14.6); RDW-SD 46.2 fL; WBC 7.47 10^3/uL (4.4-10.8)
[2022-08-23 12:39] LABS: Anion Gap 5.9 mmol/L (3-11); BUN 19 mg/dL (7-18); CO2 30.1 mmol/L (21.0-32.0); CREATININE 0.7 mg/dL (0.55-1.02); Calcium 9.5 mg/dL (8.5-10.1); Chloride 103 mmol/L (98-107); Estimated GFR 98.34 (mL/min/1.73m2); Glucose 185 mg/dL (74-106); Potassium 3.8 mmol/L (3.5-5.1); Sodium 139 mmol/L (136-145)
[2022-09-03 15:06] LABS: Phospholipase A2 Recep, ELISA 2 RU/mL
[2022-09-03 15:08] LABS: PLA2R, Immunoflurescence Negative (Negative); THSD7A Ab Negative (Negative)
== END 2022-08-23 15:42 | disposition home or self-care (01) ==
LOC: LBO 15:43
PROVIDERS: PCP Internal Medicine; Visit Provider Nurse Practitioner
DX: N02.2 Recurrent and persistent hematuria with diffuse membranous glomerulonephritis (principal)
CPT/HCPCS: 36415; 80048; 83520; 86255; 85025

== ENCOUNTER → 2022-08-29 02:51 | Outpatient (CLI) | payer BC, SELFPAY ==
--- NOTE | 2022-08-29 | DI.US_ITS ---
Exam(s) MG MAMMO DIAGNOSTIC BI US BREAST LT LIMITED EXAM: US BREAST LT LIMITED CLINICAL HISTORY: F/U TO ABNORMAL MAMMO R92.8, 6 MONTH F/U TECHNIQUE: Ultrasound performed using standard protocol. COMPARISON: US US BREAST LT COMPLETE from 05/08/2022 FINDINGS: Bilateral mammogram was performed with additional views of the left breast with CC and MLO magnificat ion views. Today's examination is compared with multiple previous examinations including magnificati on views August 2021 and April 2022. On note is again made of a retroareolar group of microcalcif ications of the left breast projected slightly lateral to the nipple which are predominantly punctate . These are associated with an area of vaguely nodular increased radiodensity as noted on mammograms from 2018, 2019 and 2019. No significant interval change in appearance comparison with examinations of 2020. No new microcalcifications. No other significant mammographic change in either breast. Left breast ultrasound shows no evidence of a mass or cyst in the retroareolar portion of the breast to correspond with the mammographic abnormality. IMPRESSION: No specific evidence of malignancy at this time. Stable left breast microcalcifications as described above. Follow-up mammogram suggested in 12 months. BI-RADS Cat 2 - Benign Findings Breast Density - Category B - Scattered areas of fibroglandular density DATA REPOSITORY:
== END ==
PROVIDERS: PCP Internal Medicine; Visit Provider Internal Medicine
DX: R92.8 Other abnormal and inconclusive findings on diagnostic imaging of breast (principal); R92.0 Mammographic microcalcification found on diagnostic imaging of breast
CPT/HCPCS: 76642; 77062; 77066; G0279

== ENCOUNTER 2022-09-07 07:35 | Day surgery (SDC) | payer BC, SELFPAY ==
--- NOTE | 2022-09-06 17:10 | W.ANESPRE ---
General Info Date of Service Date Performed: 09/07/22 Height: 5 ft 6 in Weight: 81.647 kg Body Mass Index (BMI): 29.0 Surgical Procedure: Operation Date: 09/07/22 09:10 Proposed Procedure Side Surgeon p Excision Skin Lesions Knee & Large Toe Left Olaf Beckham MD Meds Allergies and Home Medications Allergies Allergy/AdvReac Type Severity Reaction Status Date / Time No Known Drug Allergies Allergy Verified 09/07/22 07:49 Home Medication Medication Instructions Recorded furosemide 20 mg tablet 20 mg PO DAILY 02/23/20 amlodipine 10 mg tablet 10 mg PO DAILY 07/04/21 atorvastatin 10 mg tablet 10 mg PO HS 07/04/21 cholecalciferol (vitamin D3) 25 25 mcg PO DAILY 07/04/21 mcg (1,000 unit) capsule losartan 100 mg tablet 100 mg PO DAILY 07/04/21 acetaminophen 325 mg capsule 650 mg PO TID PRN 04/23/22 (Tylenol) ibuprofen 200 mg tablet (Advil) 400 mg PO Q6H PRN 04/23/22 metformin 500 mg tablet 500 mg PO TID 07/25/22 Current Visit Medications: Current Medications Generic Name Dose Route Start Last Admin Trade Name Daneq PRN Reason Stop Dose Admin Acetaminophen 1,000 mg 09/07/22 06:00 Acetaminophen 500 Mg Tab PO 10/06/22 23:59 PREOP SUHAIL Celecoxib 200 mg 09/07/22 06:00 Celecoxib 200 Mg Cap PO 10/06/22 23:59 PREOP SUHAIL Gabapentin 300 mg 09/07/22 06:00 Gabapentin 300 Mg Cap PO 10/06/22 23:59 PREOP SUHAIL Ringer's Solution 1,000 mls @ 80 mls/hr 09/07/22 06:00 IV 10/06/22 23:59 INFUSION SUHAIL Cefazolin Sodium/Dextrose 2 gm in 50 mls @ 100 mls/hr 09/07/22 06:00 Ancef Duplex IVPB 10/06/22 23:59 PREOP SUHAIL IV Miscellaneous Supplies 1 each 09/07/22 06:00 Iv Access IV 10/06/22 23:59 DIRECTED SUHAIL Sodium Chloride 0 ml 09/07/22 06:00 Normal Saline Flush 10 Ml Syr IV 10/06/22 23:59 PRN PRN Sodium Chloride 0 ml 09/07/22 06:00 Normal Saline 10 Ml Vial IJ 10/06/22 23:59 DIRECTED PRN Sterile Water 0 ml 09/07/22 06:00 Water,Injection,Sterile 10 Ml Vial IJ 10/06/22 23:59 DIRECTED PRN PFSH Active Problems Active Problems: Problem Status Onset Code Skin lesion L98.9 Closed fracture of left proximal humerus 04/14/22 S4.A Hypertension I10 Obesity E66.9 Medical History Medical History Anxiety and depression Chronic kidney disease COVID 05/2022 Diabetes Dislocated shoulder Elevated blood sugar Gout Multiple sclerosis (02/28/12) Nephropathy (08/07/13) Unspecified essential hypertension (08/07/13) Medical History Comments:: Left shoulder tender Surgical History Surgical History section X 2 Tobacco Smoking/Tobacco Use Status: Former Tobacco Use Alcohol Alcohol Intake: current Alcohol intake frequency: a few times a week Substance Use Substance use: Never Substance use type: does not use Prental History History 3 Para 2 Hx # Term Pregnancies Multiple births Hx # Pregnancies Ectopic pregnancies AB induced Hx Number of Living Children AB spontaneous Vital Signs and Lab Results Vital Signs Most Recent Vital Signs in EMR: Temp Pulse Resp BP Pulse Ox 36.7 C 95 H 16 132/93 H 96 09/07/22 07:49 09/07/22 07:49 09/07/22 07:49 09/07/22 07:49 09/07/22 07:49 Lab Results Blood Type / Crossmatch: No Data to Display Complete Blood Count: White Blood Count 7.47 10^3/uL (4.4-10.8) 08/23/22 11:57 Red Blood Count 4.47 10^6/uL (3.93-5.22) 08/23/22 11:57 Hemoglobin 13.8 g/dL (11.2-15.7) 08/23/22 11:57 Hematocrit 40.2 % (36.0-46.0) 08/23/22 11:57 Platelet Count 253 10^3/uL (130-400) 08/23/22 11:57 Complete Metabolic Panel: Sodium 139 mmol/L (136-145) 08/23/22 11:57 Potassium 3.8 mmol/L (3.5-5.1) 08/23/22 11:57 Chloride 103 mmol/L (98-107) 08/23/22 11:57 Carbon Dioxide 30.1 mmol/L (21.0-32.0) 08/23/22 11:57 BUN 19 mg/dL (7-18) H 08/23/22 11:57 Creatinine 0.7 mg/dL (0.55-1.02) 08/23/22 11:57 Est GFR (CKD-EPI 2020) 98.34 (mL/min/1.73m2) 08/23/22 11:57 Calcium 9.5 mg/dL (8.5-10.1) 08/23/22 11:57 Glucose 185 mg/dL (74-106) H 08/23/22 11:57 Liver Function Panel: No Data to Display Coagulation Panel: No Data to Display Cardiac Panel: No Data to Display Arterial Blood Gas: No Data to Display Venous Blood Gas: No Data to Display Pancreas Panel: No Data to Display Thyroid Panel: No Data to Display Infectious Disease: No Data to Display Blood Cultures: No Data to Display Toxicology Panel: No Data to Display Imaging and Studies Imaging and Studies Study information below may be from another EMR and interpreted by another provider. Please see original notes in EMR for more complete details. Echocardiogram Summary: 2016: LVEF 65-70%, no WMA. mild MR. mild-mod TR. Anesthesia Assessment and Plan Anesthesia History Personal History: No History of Anesthesia Complications Family History: No Family History of Anesthesia Complications Exercise Tolerance Exercise Tolerance: Metabolic Equivalents>4 Cardiac & Pulmonary Exam Cardiac Exam: Normal S1/S2 Heart Sounds Pulmonary Exam: Clear Bilateral Breath Sounds Implantable Cardiac Device Does patient have a Pacemaker or an ICD?: No Airway Exam Known Difficult Airway: No Mallampati Class: 4 Mouth Opening: Narrow (< 3cm) Thyromental Distance: Less than 3 cm Neck Range of Motion: Full ROM Neck Circumference: Normal Teeth Condition: Normal Dentition ASA Classification ASA Score: ASA 3 Emergency Case?: No NPO Status NPO Status: NPO Clears >2 hours, Solids >8 hours Anesthesia Plan Resuscitation Status: Full Code Anesthesia Technique: General Anesthesia Airway Planned: Natural Airway Monitors Used: Standard Monitors Preoperative Comments:: 62 yo female for removal of left knee and toe lesion. Sig PMHx: DM (last A1c 7.%, HTN, CKD (last GFR 90s), anxiety/depression, MS (well controlled, minimal issues), nephropathy, former smoker, occ EtOH. No previous Anes record on on file here. Plan: GA/no airway, FM O2, preop cocktail (ordered by trini).
--- NOTE | 2022-09-06 20:10 | HPE_ITS ---
Assessment and Plan Assessment and plan (1) Skin lesion: Status: Acute Assessment and plan: We will proceed with excision and primary closure of the left toe and left knee. We will also add excision and primary closure of the skin lesion on the left b reast. I reviewed the risks and benefits today, and she provided informed consent. History of Present Illness History of Present Illness Chief Complaint: Skin lesions Narrative: She reports a history of a mole on the medial aspect of her left knee that has been present for several years.? Sometimes it is itchy.? It is never painful.? It did increase in size several months ago, and became raised above the level of the surrounding skin quite a bit.? She underwent cryotherapy as an outpatient, but the lesion has started to return again and remains a bit itchy.? Similarly, she has a dark spot on the lateral aspect of her left big toe.? She says its been there for several years.? She thinks it may have increased in size slightly, and may be has become a bit darker.? It is not painful.? It does not bleed. Since her last visit to the office, she has noticed an increasing amount of irritation around the skin lesion on her left breast. Relative to the nipple, it is approximately 10:00, and approximately 7 cm away. There is no axillary lymphadenopathy. The breast is not tender. There is no palpable masses. The lesion itself, is approximately 3 cm x 2 cm. It is a little bit ulcerated towards the middle. Borders are regular PFSH All Active Problems Skin lesion (Acute) Lateral side of her left great toe 96 Closed fracture of left proximal humerus (Acute 04/14/22) Hypertension (Chronic) Obesity (Chronic) Medical History Anxiety and depression Chronic kidney disease COVID 05/2022 Diabetes Dislocated shoulder Elevated blood sugar Gout Multiple sclerosis (02/28/12) Nephropathy (08/07/13) Unspecified essential hypertension (08/07/13) Surgical History section X 2 Family History Mother Diabetes Heart disease Father Essential hypertension Kidney stones Grandmother Breast cancer maternal Maternal Aunt Breast cancer maternal Social History Smoking/Tobacco Use Status: Former Tobacco Use Smoking risk assessment performed?: Yes Alcohol Intake: current Alcohol Intake frequency: a few times a month Drug use: Never Substance use type: does not use current occupation: [employer] Current gender identity: female Do you feel safe at home: Yes Do you feel safe in your relationship?: Yes History History 3 Para 2 Hx # Term Pregnancies Multiple births Hx # Pregnancies Ectopic pregnancies AB induced Hx Number of Living Children AB spontaneous Meds Allergies and Home Medications Allergies Allergy/AdvReac Type Severity Reaction Status Date / Time No Known Drug Allergies Allergy Verified 09/07/22 07:49 Home Medications Medication Instructions Recorded Confirmed Type furosemide 20 mg tablet 20 mg PO DAILY 02/23/20 09/07/22 History amlodipine 10 mg tablet 10 mg PO DAILY 07/04/21 09/07/22 History atorvastatin 10 mg tablet 10 mg PO HS 07/04/21 09/07/22 History cholecalciferol (vitamin D3) 25 25 mcg PO DAILY 07/04/21 09/07/22 History mcg (1,000 unit) capsule losartan 100 mg tablet 100 mg PO DAILY 07/04/21 09/07/22 History acetaminophen 325 mg capsule 650 mg PO TID PRN 04/23/22 09/07/22 History (Tylenol) ibuprofen 200 mg tablet (Advil) 400 mg PO Q6H PRN 04/23/22 09/07/22 History metformin 500 mg tablet 500 mg PO TID 07/25/22 09/07/22 History Exam Narrative Exam Narrative: Physical Examination General: alert, awake, cooperative, resting comfortably, no acute distress HEENT: normocephalic, atraumatic; PERRL, EOM intact, conjunctiva normal; no nasal discharge; moist mucous membranes, oral and pharyngeal mucosa normal, tolerating secretions Neck: supple, trachea midline; full ROM Chest: normal to inspection Respiratory: normal respiratory effort, speaking in full sentences, clear to auscultation, no wheezing, rales or rhonchi Cardiac: regular rate, regular rhythm, S1S2 intact, no murmurs rubs or gallops GI: abdomen soft, non-tender, non-distended; no palpable mass or hepatosplenomegaly Skin: no lesions, rashes or trauma appreciated Neuro: AAOx3, normal speech, moving all extremities Extremities: Left upper extremity in sling, lack of fullness to the left shoulder concerning for dislocation, radial pulse intact median radial ulnar nerve distribution sensation intact, warm well perfused extremity Psych: Appropriate mood and affect Const General: cooperative, healthy appearing and comfortable Orientation: awake and oriented x3 Eyes General: appearance normal, both eyes and all related structures Conjunctivae: conjunctivae normal Sclera: sclerae normal Resp Effort & Inspection: normal respiratory effort and able to speak in complete sentences Auscultation: clear to auscultation bilaterally Cardio Jugular venous pressure: no JVD Rate: regular rate GI Inspection: non-distended Palpation: soft, no guarding, no hernias and nontender Auscultation: normal bowel sounds Skin General skin exam: normal turgor Neuro General: patient alert, patient awake and patient oriented x3 Cognition: normal cognition Extrem Right lower extremity: no edema Left lower extremity: no edema Other: The large stone on the left side has a has a dark brown uniform flat lesion. The lesion on the medial side of the left knee is also a little bit flattened relative to her previous exam. It is a little dry.
--- NOTE | 2022-09-06 20:13 | PDOC.DSDIS_ITS ---
Date of service: 09/07/22 Time of Service: 09:53 Discharge Plan Disposition Patient Disposition: Home Condition: Good Discharge Details Attending Provider: Olaf Beckham Primary Care Provider: Raul Nash Home Meds and New Rx's Prescriptions: New tramadol 50 mg tablet 50 mg PO BID PRN (Reason: pain) Qty: 6 0RF Rx Instructions: Take 1 tablet by mouth up to 2 times daily if needed for severe pain. Continued atorvastatin 10 mg tablet 10 mg PO HS losartan 100 mg tablet 100 mg PO DAILY amlodipine 10 mg tablet 10 mg PO DAILY cholecalciferol (vitamin D3) 25 mcg (1,000 unit) capsule 25 mcg PO DAILY acetaminophen [Tylenol] 325 mg capsule 650 mg PO TID PRN ibuprofen [Advil] 200 mg tablet 400 mg PO Q6H PRN furosemide 20 mg tablet 20 mg PO DAILY metformin 500 mg tablet 500 mg PO TID Discharge Instructions Additional Instructions: 1. Resume all of your medications. 2. Okay to use tylenol and ibuprofen over the counter as needed. Take the pres ecribed tramadol for severe pain if neccessary 3. Leave bandage in place for 24 hours, then remove. 4. Shower with warm soapy water. Pat dry. Use a bandaid if needed to protect your clothing. 5. No soaking or tub baths until I see you in the office. 6. No heavy lifting until I see you in the office. 7. If the incision on the toe is painful while you are walking, you can try to dillon tape the large toe to the next-door neighbor go. There is a small piece of gauze in between your toes as padding if you do this. Use a small piece of medical tape to encircle both toes together holding the larger toe against a smaller toe next to it. 8.Call the office (or go directly to the emergency room after hours) if you notice any of the following: Develop chills (warm to touch), or if you have a thermometer and your temperature is above 101 Difficulty breathing or difficultly swallowing Persistent vomiting Any bleeding ? exceeding one tablespoon 9. Call your physician if the site where your intravenous was started becomes red, swollen, painful, and warm to touch. Referrals: Olaf Beckham MD [ [facility] STAFF PHYSICIAN] - (10-14 days for suture removal) Activity:: Activity as Tolerated Remove Dressings/Wound Care:: 24 hours Shower/Bathe:: 24 hours Diet:: As Tolerated Discharge Orders Discharge Orders: Discharge Order (Routine); Ordered 09/06/22 Ordered By: Olaf Beckham DS: Diagnosis Discharge Diagnosis (1) Skin lesion: Status: Acute
--- NOTE | 2022-09-06 20:17 | W.PM.OP ---
Date of service: 09/07/22 Time of Service: 10:00 Operative Note Operative Note DATE OF PROCEDURE: 09/07/22 PRE-OP DIAGNOSIS: Skin lesions of left breast, left knee, left large toe POST-OP DIAGNOSIS: same PROCEDURE: Excision and primary closure of left breast lesion, left knee lesion, left great toe lesion SURGEON: Olaf Beckham UNPAID INTERN: Johanne Valentin ANESTHESIA TYPE: Local By Surgeon and MAC Refer to Anesthesia Record ESTIMATED BLOOD LOSS: 15 PATHOLOGY: other (Left breast lesion, left knee lesion, left large toe lesion) COMPLICATIONS: None Patient was transported to: same day Patient's condition: stable Indications: Marcie is a 62-year-old woman, with lesions of the skin on her left breast, left medial knee, and left large toe. We talked about the natural history of skin lesions, and based on some of the characters of these, I think it warrants excision since malignancy remains in the differential diagnosis. Procedure Description: We started by prepping and draping the left breast, left knee, and left forefoot. Next, I established a large field block using local anesthetic with epinephrine around the breast lesion. We performed an elliptical excision with acceptable margins using a 15 blade scalpel. I dissected down to the superficial fascia, and elevated the full layer of the skin off of the underlying fat. Dissection was completed using a 15 blade scalpel. Specimen was passed off the field, and a suture was used to andres. The wound was gently irrigated, and the skin was approximated with absorbable suture. Size of this excision site is approximately 5 cm x 2 cm x 0.5 cm. Bandage was applied. Next, I turned my attention to the left knee lesion. Again, using local anesthetic with epinephrine, I established a large field block. I then dissected the specimen with 15 blade scalpel down through the full layers of the skin taking great care to encompass an appropriate margin with normal skin adjacent. Again, the specimen was passed off the field with a suture marking the more superior aspect. The skin was irrigated, the subcutaneous layers were approximated with interrupted Vicryl's. The skin was closed with interrupted Prolenes. Finally, I turned my decision to the left large toe lesion. Using local anesthetic, I performed a digital nerve block. I then made a semielliptical incision along the longitudinal axis of the toe. I dissected down through the skin. I remained superficial to the insertion of the tendons at the DIP joint. I then used a scalpel to raise small full-thickness skin flaps on the dorsal and ventral portions of the incision. I approximated the skin with interrupted Prolene sutures, and a bandage was applied.
[2022-09-07 07:49] VITALS: BP 132/93; PULSE 95; RESP 16; TEMP 36.7; O2SAT 96
[2022-09-07 08:02] VITALS: BMI 29.0
[2022-09-07] MEDS: Acetaminophen 500 MG TAB 1000 MG PO (08:14)
[2022-09-07] MEDS: Celecoxib 200 MG CAP PO (08:15)
[2022-09-07] MEDS: Gabapentin 300 MG CAP PO (08:15)
[2022-09-07] MEDS: Lactated Ringers 1,000 ML 80 ML IV (08:32)
[2022-09-07] MEDS: ceFAZolin 2 GM/50 ML BAG IVPB (09:16)
[2022-09-07] MEDS: Bupivacaine 0.25% Pres-Free W/EPI 30 ML VIAL (09:29)
--- NOTE | 2022-09-07 09:37 | SKI_PTH ---
PATIENT: Marcie Plasencia LOC: [facility] U#:[id number] AGE/SX: 62/F ROOM: RE09/07/[address]: Olaf Beckham MD : 1960 BED: DIS: 09/07/2022 SPEC #: [id number] RECD: 09/07/22 12:40 STATUS: LASHELL RE #: [id number] HERNANDO: 09/07/22 09:[address]: Olaf Beckham DEPT: Surgical Specimen RECD BY: Carolina Choe ENTERED: 09/07/22 12:42 SP TYPE: ROSALIND GILBERT DR: Raul Nash Tissues: 1 - SKIN BIOPSY(SHAVE/PUNCH) 2 - SKIN BIOPSY(SHAVE/PUNCH) 3 - SKIN BIOPSY(SHAVE/PUNCH) Procedures: SKIN LEVEL 4 Comments: [id number]
[2022-09-07 10:02] VITALS: BP 126/81; PULSE 88; RESP 18; TEMP 36.3; O2SAT 96
--- NOTE | 2022-09-07 10:39 | W.ANESPOSTOP ---
Postoperative Evaluation Date, Time and Location Date Performed: 09/07/22 Time Performed: 10:40 Patient Location: Day Surgery Unit Vital Signs Most Recent Imported Vital Signs: Most Recent Vital Signs Temp Pulse Resp BP Pulse Ox 36.3 C L 88 18 126/81 96 09/07/22 10:02 09/07/22 10:02 09/07/22 10:02 09/07/22 10:02 09/07/22 10:02 Pain Score Most Recent Pain Score: Most Recent Pain Score Pain Level 0 09/07/22 10:02 Assessment Mental Status: Awake (Alert & Oriented to Patient Baseline) Airway and Respiratory Function: Patent airway with normal (patient baseline) respiratory exam Cardiovascular Function: Hemodynamically Stable Hydration Status: Adequately Hydrated Nausea & Vomiting: No Nausea or Vomiting Pain: Pain is tolerable per patient Peripheral Nerve Block: Patient did not receive a nerve block
[2022-09-07 10:42] VITALS: BP 135/87; PULSE 74; RESP 18; TEMP 36.1; O2SAT 98
== END 2022-09-07 11:35 | disposition home or self-care (01) ==
PROVIDERS: PCP Internal Medicine; Visit Provider Surgery
PROC: (CPT 11406; principal; 2022-09-07 09:00)
DX: D22.72 Melanocytic nevi of left lower limb, including hip (principal); L82.1 Other seborrheic keratosis; L90.5 Scar conditions and fibrosis of skin
CPT/HCPCS: 11406; 11404; 11421; 88305; J0690; J1885; J2405

== ENCOUNTER 2022-10-11 04:05 | Outpatient (CLI) | payer BC, SELFPAY ==
[2022-10-11 12:32] LABS: Albumin 2.5 g/dL (3.4-5.0)
[2022-10-15 12:14] LABS: Phospholipase A2 Recep, ELISA 2 RU/mL
[2022-10-15 14:33] LABS: PLA2R, Immunoflurescence Negative (Negative)
[2022-10-16 13:18] LABS: THSD7A Ab Negative (Negative)
== END 2022-10-11 04:06 | disposition home or self-care (01) ==
LOC: LBO 04:05
PROVIDERS: PCP Internal Medicine; Visit Provider Nurse Practitioner
DX: N02.2 Recurrent and persistent hematuria with diffuse membranous glomerulonephritis (principal)
CPT/HCPCS: 36415; 83520; 86255; 82040

== ENCOUNTER 2022-12-27 12:39 | Outpatient (REF) | payer BC, SELFPAY ==
[2022-12-27 14:58] LABS: Abs Immature Grans 0.04 10^3/uL (0.0-0.06); Absolute Eosinophil Count 0.24 10^3/uL (0.0-0.7); Absolute Lymphocyte Count 1.23 10^3/uL (1.2-3.4); Absolute Monocyte Count 0.52 10^3/uL (0.1-0.8); Absolute Neutrophil Count 4.56 10^3/uL (1.2-6.7); Basophils % 1.5; Eosinophils % 3.6; HCT 44.1 % (36.0-46.0); HGB 14.7 g/dL (11.2-15.7); Immature Grans % 0.6; Lymphocytes % 18.4; MCH 29.6 pg (27.0-33.0); MCHC 33.3 % (32.0-36.0); MCV 89 fL (80-95); MPV 12.1 fL (8.0-11.0); Monocytes % 7.8; Neutrophils % 68.1; Platelet Count 270 10^3/uL (130-400); RBC 4.96 10^6/uL (3.93-5.22); RDW 14.6 % (11.7-14.6); RDW-SD 46.5 fL; WBC 6.69 10^3/uL (4.4-10.8)
[2022-12-27 15:07] LABS: FREE T4 0.92 ng/dL (0.76-1.46); TSH 2.77 uIU/mL (0.36-3.74)
[2022-12-27 15:43] LABS: Hemoglobin A1C 6.8 % (<5.7)
[2022-12-28 13:23] LABS: Albumin 51.7 % (55.8-66.1); Albumin g/dL 3.1 g/dL (3.6-5.2); Comment (See Note); Total Protein 5.9 g/dL (6.3-8.2)
[2022-12-28 14:52] LABS: Immunotyping, Serum (See Note)
== END 2022-12-27 12:40 | disposition home or self-care (01) ==
LOC: NCHCN 12:39
PROVIDERS: PCP Internal Medicine; Visit Provider Internal Medicine
DX: I10 Essential (primary) hypertension (principal); E11.9 Type 2 diabetes mellitus without complications; R53.83 Other fatigue; N02.2 Recurrent and persistent hematuria with diffuse membranous glomerulonephritis
CPT/HCPCS: 83036; 84165; 84439; 84443; 85025; 86320

== ENCOUNTER 2023-02-26 03:11 | Outpatient (CLI) | payer BC, SELFPAY ==
[2023-02-26 14:26] LABS: Bilirubin Negative (Negative); Blood Moderate (Negative); Clarity Clear (Clear); Glucose 500 mg/dL (Negative); Ketones Negative (Negative); Leukocyte Esterase Negative (Negative); Nitrite Negative (Negative); Specific Gravity 1.025 (1.005-1.025); Urobilinogen 0.2 mg/dL (Up to 0.2); pH 5.5 (5-8)
[2023-02-26 15:18] LABS: Epithelial Cells Few HPF (Negative); RBC 0-2 HPF (0-2)
[2023-02-26 15:19] LABS: Bacteria Negative HPF (Negative); Crystals Few Amorphous HPF (Negative); Mucus Moderate (Negative); Other Cells Few Renal (Negative)
[2023-02-26 15:21] LABS: C & S Indicated? No; Casts 0-2 Hyaline LPF (Negative)
[2023-02-26 16:35] LABS: Albumin 2.1 g/dL (3.4-5.0); Anion Gap 5.3 mmol/L (3-11); BUN 19 mg/dL (7-18); CO2 29.7 mmol/L (21.0-32.0); CREATININE 0.8 mg/dL (0.55-1.02); Calcium 8.7 mg/dL (8.5-10.1); Chloride 105 mmol/L (98-107); Estimated GFR 83.78 (mL/min/1.73m2); Glucose 117 mg/dL (74-106); Potassium 4.1 mmol/L (3.5-5.1); Sodium 140 mmol/L (136-145)
[2023-02-26 18:44] LABS: COMMENT (LAB VIEW ONLY) 114.39 mg/dL
[2023-02-26 20:07] LABS: PROTEIN > 1000.0 mg/dL
[2023-03-01 12:17] LABS: Phospholipase A2 Recep, ELISA 4 RU/mL
[2023-03-01 14:53] LABS: PLA2R, Immunoflurescence Positive (Negative)
== END 2023-02-26 03:12 | disposition home or self-care (01) ==
LOC: LBO 03:11
PROVIDERS: PCP Internal Medicine; Visit Provider Nurse Practitioner
DX: N02.2 Recurrent and persistent hematuria with diffuse membranous glomerulonephritis (principal)
CPT/HCPCS: 36415; 80048; 83520; 86255; 81003; 81015; 82040; 82565; 84156

== ENCOUNTER 2023-04-11 02:37 | Outpatient (CLI) | payer BC, SELFPAY ==
[2023-04-12 10:49] LABS: Hepatitis B Surface Ag Negative (Negative)
[2023-04-12 11:18] LABS: Hep B Core Antibody Negative (Negative)
[2023-04-12 13:58] LABS: HCV RNA Qualitative Undetected (Undetected)
== END 2023-04-11 02:38 | disposition home or self-care (01) ==
LOC: LBO 02:37
PROVIDERS: PCP Internal Medicine; Visit Provider Nurse Practitioner
DX: N02.2 Recurrent and persistent hematuria with diffuse membranous glomerulonephritis (principal)
CPT/HCPCS: 36415; 86704; 87340; 87522

== ENCOUNTER 2023-04-19 02:28 | Emergency (ER) | payer BC, SELFPAY ==
[2023-04-19] VITALS (62 sets, daily range): BP systolic 114–149; BP diastolic 65–87; PULSE 73–94; RESP 10–24; O2SAT 91–97
--- NOTE | 2023-04-19 02:30 | RT.EKG_ITS ---
APPROVED REPORT Exam: Resting ECG Reason for Exam: chest pain Patient Location: E HR:77 bpm ECG Measurements Heart Rate 77 AXIS OH 164 P 61 QRSd 95 QRS -16 QT 403 T 38 QTc 457 Conclusion Sinus rhythm...normal P axis, V-rate 60- 99 Physician: no stemi
[2023-04-19 02:46] LABS: Abs Immature Grans 0.05 10^3/uL (0.0-0.06); Absolute Monocyte Count 0.65 10^3/uL (0.1-0.8); Absolute Neutrophil Count 4.61 10^3/uL (1.2-6.7); Basophils % 1.3; HCT 49.8 % (36.0-46.0); HGB 16.4 g/dL (11.2-15.7); Immature Grans % 0.7; MCHC 32.9 % (32.0-36.0); MCV 88 fL (80-95); MPV 10.8 fL (8.0-11.0); Monocytes % 8.7; Neutrophils % 61.3; Platelet Count 248 10^3/uL (130-400); RBC 5.65 10^6/uL (3.93-5.22); RDW 14.3 % (11.7-14.6); RDW-SD 45.5 fL; WBC 7.51 10^3/uL (4.4-10.8)
[2023-04-19 03:05] LABS: ALT 19 U/L (14-59); AST 11 U/L (15-37); Albumin 2.1 g/dL (3.4-5.0); Alkaline Phosphatase 63 U/L (46-116); Anion Gap 6.7 mmol/L (3-11); BUN 22 mg/dL (7-18); Bilirubin, Total 0.2 mg/dL (0.2-1.0); CO2 28.3 mmol/L (21.0-32.0); CREATININE 0.8 mg/dL (0.55-1.02); Calcium 8.6 mg/dL (8.5-10.1); Chloride 107 mmol/L (98-107); Estimated GFR 83.78 (mL/min/1.73m2); Glucose 137 mg/dL (74-106); Potassium 3.7 mmol/L (3.5-5.1); Sodium 142 mmol/L (136-145); Total Protein 5.8 g/dL (6.4-8.2); Troponin I < 50 ng/L (<or=60)
[2023-04-19 03:07] LABS: INR 0.9 (0.9-1.1); PTT Activated 27.5 sec (21.5-31.9); Prothrombin Time 9.2 sec (9.3-11.0)
--- NOTE | 2023-04-19 03:10 | W.ED.GENAD ---
Discharge Plan Disposition Patient Disposition: Home Condition: Good Discharge Details Chief Complaint: Chest Pain Clinical Impression: Acute chest wall pain Primary Care Provider: Raul Nash ED Provider: Kwabena Wise Home Meds and New Rx's Prescriptions: No Action atorvastatin 10 mg tablet 10 mg PO HS losartan 100 mg tablet 100 mg PO DAILY amlodipine 10 mg tablet 10 mg PO DAILY cholecalciferol (vitamin D3) 25 mcg (1,000 unit) capsule 25 mcg PO DAILY acetaminophen [Tylenol] 325 mg capsule 650 mg PO TID PRN furosemide 20 mg tablet 20 mg PO DAILY Jardiance 10 mg tablet 10 mg PO DAILY metformin 500 mg tablet 1,000 mg PO DAILY metformin 500 mg tablet 500 mg PO QPM Eliquis 5 mg tablet 5 mg PO 2XD Discharge Instructions Instructions: Chest Wall Pain (ED) Additional Instructions: At this time your work-up shows no evidence to suggest blood clots, significant heart disease, or significant abnormality. Because of your age and risk factors it would be beneficial to perform an outpatient urgent stress test. Please discuss this with your primary care provider Dr. Nash at your upcoming visit. You can use diclofenac/Voltaren gel on the sore areas on your chest and this should not significantly interact with your other medications. If you notice any worsening of your symptoms, or any new symptoms such as vomiting, diarrhea, fever, chills, shortness of breath, chest pain, numbness, weakness, or fainting , please return immediately to the emergency department for reevaluation. Please follow up with your primary care provider as soon as possible for reassessment and reevaluation. As always, it was a pleasure participating in your medical care today. Referrals: Raul Nash MD [Primary Care Provider] - Medical Decision Making 62-year-old female with past medical history of MS, membranous glomerulonephritis, hypertension, type 2 diabetes, who is on Eliquis for DVT prevention, presents today for evaluation of left-sided chest pain. Patient states that the pain initially began at around 5 PM, it was sharp and located on the left side of her chest and radiated to her left arm. It got better with palpating that area. It began while she was walking. It did not improve with rest. The pain gradually subsided on its own, and then at 1 AM the pain again returned and was notably sharp and achy again. No pleuritic component. By the time the patient arrived here in the emergency department at around 2:30 AM the pain had most completely subsided. She denies history of cardiac disease. She denies any trauma. She does have a history of a dislocated shoulder on the left but denies any trauma at this time. No tearing or ripping sensation. No chest heaviness. No other complaints at this time. Exam shows no evidence of rash. No asymmetry for breath sounds or other abnormality. Differential includes musculoskeletal strain, less likely pneumothorax, less likely ACS. Dissection seems unlikely. The patient has been taking her Eliquis, and PE is unlikely. We will evaluate for concerning etiologies, monitor closely and reassess. EKG shows no evidence of STEMI 4:37 AM D-dimer has returned negative, initial EKG is stable with no evidence of STEMI or significant abnormality. Laboratory work-up demonstrates no white count. Electrolytes normal, renal function stable. Troponin normal. With a normal D-dimer, likelihood of PE is notably unlikely especially in consideration of her Eliquis use. Chest x-ray negative for acute process. Symptoms inconsistent with pneumothorax or dissection. Prinzmetal's angina is potential but appears clinically unlikely based on history. Suspect musculoskeletal etiology. We will get delta troponin secondary to patient's age and risk factors. Patient feels well. She admits to very mild achiness in her left chest at this time described as a 1 out of 10. 6:18 AM Initial and repeat troponin are normal. D-dimer normal. Chest x-ray negative per radiology. Patient feels well. Minimal achiness in the left chest wall. Symptoms at this time appear clinically inconsistent with ACS. We did discuss observation versus discharge with the patient. Patient prefers discharge at this time weighing the risks and benefits. She does have an outpatient follow-up scheduled with Dr. Nash in the next few days. Patient will be discharged. Recommend topical Voltaren gel in the areas of soreness. Discussed red flags for which to return. Symptoms at this time demonstrate no evidence of acute life-threatening etiology warranting further emergent work-up. I have extensively reviewed the treatment plan and discharge instructions with the patient and their family. I have addressed all patient concerns at this time. The patient and family was made aware of what symptoms to monitor for that would warrant a return to the emergency department. Discussed the plan with the patient and family, they demonstrate verbal understanding and agreement with our assessment and plan at this time. The documentation in this chart was dictated using [employer] dictation software. Please excuse any dictation errors. FINDINGS: Lungs: Unremarkable. No consolidation. Pleural spaces: Unremarkable. No pleural effusion. No pneumothorax. Heart/Mediastinum: Unremarkable. No cardiomegaly. Bones/joints: Unremarkable. IMPRESSION: No acute findings. Thank you for allowing us to participate in the care of your patient. Dictated and Authenticated by: Noah Barrios MD 04/19/2023 4:28 AM Eastern Time ([place] & [place]) HPI General Date/Time Provider Initiated Documentation: 04/19/23 02:36. HPI Narrative: 62-year-old female with past medical history of MS, membranous glomerulonephritis, hypertension, type 2 diabetes, who is on Eliquis for DVT prevention, presents today for evaluation of left-sided chest pain. Patient states that the pain initially began at around 5 PM, it was sharp and located on the left side of her chest and radiated to her left arm. It got better with palpating that area. It began while she was walking. It did not improve with rest. The pain gradually subsided on its own, and then at 1 AM the pain again returned and was notably sharp and achy again. No pleuritic component. By the time the patient arrived here in the emergency department at around 2:30 AM the pain had most completely subsided. She denies history of cardiac disease. She denies any trauma. She does have a history of a dislocated shoulder on the left but denies any trauma at this time. No tearing or ripping sensation. No chest heaviness. No other complaints at this time. Related Data Home Medications Medication Instructions Recorded Confirmed furosemide 20 mg tablet 20 mg PO DAILY 02/23/20 12/20/22 amlodipine 10 mg tablet 10 mg PO DAILY 07/04/21 12/20/22 atorvastatin 10 mg tablet 10 mg PO HS 07/04/21 12/20/22 cholecalciferol (vitamin D3) 25 25 mcg PO DAILY 07/04/21 04/19/23 mcg (1,000 unit) capsule losartan 100 mg tablet 100 mg PO DAILY 07/04/21 12/20/22 acetaminophen 325 mg capsule 650 mg PO TID PRN 04/23/22 04/19/23 (Tylenol) empagliflozin 10 mg tablet 10 mg PO DAILY 10/15/22 04/19/23 (Jardiance) metformin 500 mg tablet 1,000 mg PO DAILY 10/15/22 12/20/22 metformin 500 mg tablet 500 mg PO QPM 10/15/22 04/19/23 apixaban 5 mg tablet (Eliquis) 5 mg PO 2XD 04/19/23 04/19/23 Allergies Allergy/AdvReac Type Severity Reaction Status Date / Time No Known Drug Allergies Allergy Verified 04/19/23 02:34 General Stated Complaint: Chest Pain JAKE: 3 Review of Systems All systems reviewed & are unremarkable except as noted in HPI and below PFSH All Active Problems (Updated 04/19/23 @ 06:17 by Kwabena Wise DO) Acute chest wall pain (Acute) Fatigue (Acute) Multiple sclerosis (Chronic 02/28/12) Urine frequency (Acute) 08/2022. No loss of urine but frequent small voids. Bladder training recommended. Melanocytic nevus (Acute) Keratosis, seborrheic (Acute) Closed fracture of left proximal humerus (Acute 04/14/22) Hypertension (Chronic) Obesity (Chronic) Medical History Anxiety and depression Chronic kidney disease COVID 05/2022 Dislocated shoulder Gout History of COVID-19 Hx of adenomatous polyp of colon Hx: nephrotic syndrome Membranous nephritis Nephropathy (08/07/13) Type 2 diabetes mellitus Unspecified essential hypertension (08/07/13) Vertigo Surgical History section X 2 Family History Mother Diabetes Heart disease Hypertension Father Essential hypertension Kidney stones Grandmother Breast cancer maternal Maternal Aunt Breast cancer maternal Social History Smoking/Tobacco Use Status: Former Tobacco Use Smoking risk assessment performed?: Yes Alcohol Intake: current Alcohol Intake frequency: a few times a month Alcohol type: beer Drug use: Never Substance use type: does not use Household members: spouse and other Details: H-Harry. Housing: house Number of Children: 2 current occupation: [employer]; Insurance/financial management consultant Current gender identity: female Do you feel safe at home: Yes Do you feel safe in your relationship?: Yes History History 3 Para 2 Hx # Term Pregnancies Multiple births Hx # Pregnancies Ectopic pregnancies AB induced Hx Number of Living Children AB spontaneous Exam Narrative Exam Narrative: 1.Const: Well-nourished, Well-developed, appearing stated age 2.Eyes: PERRL, no conjunctival injection, and symmetrical lids. 3.ENT: Atraumatic external nose and ears. Moist MM. Neck: Symmetric, trachea midline, No thyromegaly. 4.CVS: +S1/S2, No murmurs or gallops. Peripheral pulses 2+ and equal in all extremities. Brisk capillary refill in all extremities. 5.RESP: Unlabored respiratory effort. Clear to auscultation bilaterally. No wheezes rales or rhonchi 6.GI: Soft, Nontender/Nondistended, No hepatosplenomegaly. No guarding or rebound. 7.MSK: Normocephalic/Atraumatic, Extremities w/o deformity or ttp No cyanosis or clubbing, Normal movement of all extremities 8.Skin: Warm, Dry. No rashes or lesions. 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 Sensation grossly intact, no focal neurologic deficits. 10.Psych: (AAO) x3. Appropriate mood and affect Course Vital Signs Vital signs: Vital Signs Pulse 82 04/19/23 02:30 Respiratory Rate 20 04/19/23 02:30 Blood Pressure 149/87 H 04/19/23 02:30 Pulse Oximetry 96 04/19/23 02:30 Pulse 82 04/19/23 02:30 Respiratory Rate 20 04/19/23 02:36 Respiratory Effort Normal 04/19/23 02:37 Respiratory Depth Normal 04/19/23 02:36 Respiratory Pattern Normal 04/19/23 02:36 Blood Pressure 149/87 H 04/19/23 02:30 Blood Pressure Position Sitting 04/19/23 02:30 Pulse Oximetry 96 04/19/23 02:30 Oxygen Delivery Method Room Air 04/19/23 02:30 Oxygen Flow Rate 0 04/19/23 02:30 Pain Level 2 04/19/23 02:36 Lab/Test Results Lab/Test Results: Laboratory Tests Range/Units 04/19/23 02:40 WBC (4.4-10.8) 10^3/uL 7.51 RBC (3.93-5.22) 10^6/uL 5.65 H Hgb (11.2-15.7) g/dL 16.4 H Hct (36.0-46.0) % 49.8 H MCV (80-95) fL 88 MCH (27.0-33.0) pg 29.0 MCHC (32.0-36.0) % 32.9 RDW (11.7-14.6) % 14.3 Plt Count (130-400) 10^3/uL 248 MPV (8.0-11.0) fL 10.8 Immature Gran % 0.7 Neutrophils % 61.3 Lymphocytes % 24.0 Monocytes % 8.7 Eosinophils % 4.0 Basophils % 1.3 Nucleated RBC % (0.0-0.3) % 0.0 Absolute Neutrophils (1.2-6.7) 10^3/uL 4.61 Absolute Lymphocytes (1.2-3.4) 10^3/uL 1.80 Absolute Monocytes (0.1-0.8) 10^3/uL 0.65 Absolute Eosinophils (0.0-0.7) 10^3/uL 0.30 Absolute Basophils (0.0-0.2) 10^3/uL 0.10
--- NOTE | 2023-04-19 03:15 | DI.RAD_ITS ---
Exam(s) XR PORTABLE CHEST AP EXAM: XR PORTABLE CHEST AP CLINICAL HISTORY: left chest and shoulder pain TECHNIQUE: 2D digital imaging was performed of the chest. One image was obtained. An AP view was ob tained. COMPARISON: CR CHEST 2 VIEWS PA,LAT from 12/19/2015 FINDINGS: MEDIASTINUM: Normal. HEART: Normal. PULMONARY VASCULATURE: Normal. LUNGS: Clear. PLEURAL SPACE: No pleural effusion or pneumothorax. BONE:Within normal limits for the patient's age. OTHER FINDINGS:Normal. IMPRESSION: No acute pulmonary findings. DATA REPOSITORY: RADIATION DOSE DELIVERED:
[2023-04-19 04:28] LABS: D-Dimer 300 ng/mlFEU (<500)
--- NOTE | 2023-04-19 04:28 | DI.VRAD_ITS ---
PROCEDURE INFORMATION: Exam: XR Chest Exam date and time: 04/19/2023 3:31 AM Age: 62 years old Clinical indication: Left-sided and other: Left chest and shoulder pain TECHNIQUE: Imaging protocol: Radiologic exam of the chest. Views: 1 view. COMPARISON: CR XR SHOULDER LT COMPLETE 2+V 07/25/2022 8:20 AM FINDINGS: Lungs: Unremarkable. No consolidation. Pleural spaces: Unremarkable. No pleural effusion. No pneumothorax. Heart/Mediastinum: Unremarkable. No cardiomegaly. Bones/joints: Unremarkable. IMPRESSION: No acute findings. Dictated and Authenticated by: Noah Barrios MD. Ordering:LEONEL Yuan MD
[2023-04-19 06:02] LABS: Troponin I < 50 ng/L (<or=60)
--- NOTE | 2023-04-22 17:41 | NUR.NOTE ---
Nursing Note: Accessed pt chart to determine EKG orders.
== END 2023-04-19 06:27 | disposition home or self-care (01) ==
PROVIDERS: Emergency Provider Student in an Organized Health Care Education/Training Program; PCP Internal Medicine
DX: R07.9 Chest pain, unspecified (principal); I10 Essential (primary) hypertension; E11.9 Type 2 diabetes mellitus without complications; G35 Multiple sclerosis; N05.2 Unspecified nephritic syndrome with diffuse membranous glomerulonephritis; Z79.84 Long term (current) use of oral hypoglycemic drugs; Z79.01 Long term (current) use of anticoagulants
CPT/HCPCS: 36415; 80053; 93005; 99284; 71045; 83735; 84484; 85025; 85379; 85610; 85730; 93010; 99283

== ENCOUNTER 2023-07-02 03:16 | Outpatient (CLI) | payer BC, SELFPAY ==
[2023-07-02 11:30] LABS: Bilirubin Negative (Negative); Blood Trace-intact (Negative); Clarity Clear (Clear); Glucose >=1000 mg/dL (Negative); Ketones Negative (Negative); Leukocyte Esterase Negative (Negative); Nitrite Negative (Negative); Urobilinogen 0.2 mg/dL (Up to 0.2)
[2023-07-02 11:38] LABS: Bacteria Negative HPF (Negative); C & S Indicated? No; Casts 3-5 Hyaline LPF (Negative); Crystals Negative HPF (Negative); Epithelial Cells Few HPF (Negative); Mucus Negative (Negative)
[2023-07-02 11:52] LABS: Absolute Eosinophil Count 0.27 10^3/uL (0.0-0.7); Absolute Monocyte Count 0.62 10^3/uL (0.1-0.8); Absolute Neutrophil Count 7.32 10^3/uL (1.2-6.7); Basophils % 1.1; Eosinophils % 2.9; HCT 45.8 % (36.0-46.0); HGB 15.3 g/dL (11.2-15.7); Immature Grans % 1.1; Lymphocytes % 9.7; MCH 29.3 pg (27.0-33.0); MCHC 33.4 % (32.0-36.0); MCV 88 fL (80-95); Monocytes % 6.7; Neutrophils % 78.5; Platelet Count 371 10^3/uL (130-400); RBC 5.22 10^6/uL (3.93-5.22); RDW-SD 44.7 fL; WBC 9.31 10^3/uL (4.4-10.8)
[2023-07-02 12:50] LABS: PROTEIN 224.7 mg/dL
[2023-07-02 12:53] LABS: Iron 88 ug/dL (50-170); Total Iron Binding Capacity 247 ug/dL (250-450); Transferrin Sat 36 % (15-50)
[2023-07-02 12:54] LABS: COMMENT (LAB VIEW ONLY) < 13.00 mg/dL; Prot/Crea Ur Ratio 22.22
[2023-07-02 13:14] LABS: Albumin 2.1 g/dL (3.4-5.0); Anion Gap 5.9 mmol/L (3-11); BUN 18 mg/dL (7-18); CO2 29.1 mmol/L (21.0-32.0); CREATININE 0.7 mg/dL (0.55-1.02); Calcium 9.8 mg/dL (8.5-10.1); Chloride 104 mmol/L (98-107); Cholesterol 199 mg/dL (<200); Estimated GFR 97.72 (mL/min/1.73m2); Ferritin 285 ng/mL (8-252); Glucose 155 mg/dL (74-106); HDL Cholesterol 68 mg/dL (40-60); PHOSPHORUS 4.8 mg/dL (2.6-4.7); Potassium 4.4 mmol/L (3.5-5.1); Sodium 139 mmol/L (136-145); Triglyceride 430 mg/dL (<150)
[2023-07-02 13:16] LABS: Vitamin D 25 Total 5.6 ng/mL (30-100)
[2023-07-02 13:37] LABS: LDL CHOLESTEROL 74 mg/dL (<100)
[2023-07-02 23:06] LABS: Parathyroid Hormone,Intact 34 pg/mL (19-88)
[2023-07-05 16:26] LABS: Phospholipase A2 Recep, ELISA <2 RU/mL
[2023-08-26 09:45] LABS: PLA2R, Immunoflurescence Negative (Negative); THSD7A Ab Negative (Negative)
== END 2023-07-02 03:17 | disposition home or self-care (01) ==
LOC: LBO 03:16
PROVIDERS: PCP Internal Medicine; Visit Provider Nurse Practitioner
DX: R80.9 Proteinuria, unspecified (principal); N02.2 Recurrent and persistent hematuria with diffuse membranous glomerulonephritis; N18.9 Chronic kidney disease, unspecified
CPT/HCPCS: 36415; 80048; 80061; 82306; 83520; 83721; 86255; 81003; 81015; 82040; 82565; 82728; 83540; 83550; 83970; 84100; 84156; 85025

== ENCOUNTER 2023-07-12 19:33 | Outpatient (CLI) | payer BC, SELFPAY ==
[2023-07-15 12:55] LABS: CD19 <1 % (6-24); CD20 <1 % (6-24)
== END 2023-07-12 19:34 | disposition home or self-care (01) ==
LOC: LBO 19:35
PROVIDERS: PCP Internal Medicine; Visit Provider Nurse Practitioner
DX: N02.2 Recurrent and persistent hematuria with diffuse membranous glomerulonephritis (principal)
CPT/HCPCS: 36415; 88184; 88185

== ENCOUNTER 2023-08-22 02:07 | Outpatient (CLI) | payer BC, SELFPAY ==
[2023-08-22 16:22] LABS: Albumin 2.5 g/dL (3.4-5.0); Anion Gap 7.2 mmol/L (3-11); BUN 18 mg/dL (7-18); CO2 26.8 mmol/L (21.0-32.0); CREATININE 0.8 mg/dL (0.55-1.02); Chloride 105 mmol/L (98-107); Estimated GFR 83.26 (mL/min/1.73m2); Glucose 148 mg/dL (74-106); Potassium 4.1 mmol/L (3.5-5.1); Sodium 139 mmol/L (136-145)
[2023-08-22 16:40] LABS: Bilirubin Negative (Negative); Blood Small (Negative); Clarity Sl Cloudy (Clear); Glucose 500 mg/dL (Negative); Ketones Negative (Negative); Leukocyte Esterase Negative (Negative); Nitrite Negative (Negative); Specific Gravity 1.025 (1.005-1.025); Urobilinogen 0.2 mg/dL (Up to 0.2); pH 5.5 (5-8)
[2023-08-22 17:05] LABS: COMMENT (LAB VIEW ONLY) 68.05 mg/dL
[2023-08-22 17:06] LABS: Bacteria Negative HPF (Negative); Epithelial Cells Moderate HPF (Negative); Other Cells Rare Renal (Negative); WBC 20-50 HPF (0-5)
[2023-08-22 17:07] LABS: C & S Indicated? Yes; Crystals Negative HPF (Negative); Mucus Trace (Negative)
[2023-08-22 17:32] LABS: PROTEIN 562.7 mg/dL; Prot/Crea Ur Ratio 8.26
== END 2023-08-22 02:08 | disposition home or self-care (01) ==
LOC: LBO 02:08
PROVIDERS: PCP Internal Medicine; Visit Provider Nurse Practitioner
DX: N02.2 Recurrent and persistent hematuria with diffuse membranous glomerulonephritis (principal)
CPT/HCPCS: 36415; 80048; 81003; 81015; 82040; 82565; 84156; 87086

== ENCOUNTER 2023-09-24 11:14 | Outpatient (REF) | payer BC, SELFPAY ==
--- NOTE | 2023-09-24 10:15 | PAPFT_PTH ---
PATIENT: Marcie Plasencia LOC: N U#:[id number] AGE/SX: 63/F ROOM: RE09/24/[address]: Dorita Jenkins : 1960 BED: DIS: 09/24/2023 SPEC #: [id number] RECD: 09/24/23 13:00 STATUS: LASHELL WALLACE #: [id number] HERNANDO: 09/24/23 10:[address]: Dorita Jenkins DEPT: [facility] Cytology RECD BY: Carolina Choe ENTERED: 09/24/23 13:00 SP TYPE: PAPFT OTHR DR: Raul Nash Tissues: 1 - CX/ENDOCX FOR PAP SMEARS Procedures: PAP THIN PREP/UVM Screening Comments: [id number]
== END 2023-09-24 11:15 | disposition home or self-care (01) ==
LOC: LBN 11:14
PROVIDERS: PCP Internal Medicine; Visit Provider Obstetrics & Gynecology Gynecology
DX: N89.8 Other specified noninflammatory disorders of vagina (principal)
CPT/HCPCS: 88142; 87480; 87510; 87660

== ENCOUNTER → 2023-10-08 03:09 | Outpatient (CLI) | payer BC, SELFPAY ==
--- NOTE | 2023-10-08 07:55 | DI.MAMMO_ITS ---
Exam(s) MAMMO SCREENING EXAM: MAMMO SCREENING CLINICAL HISTORY: screening,Z12.39. TECHNIQUE: Bilateral full field digital CC and MLO mammographic images were obtained with 3D tomosyn thesis and utilizing computer aided detection (CAD). COMPARISON: Prior mammograms were reviewed. Prior ultrasound reviewed FINDINGS: There has been no significant change in the appearance and distribution of the fibroglandular tissue. In the left breast the previously described group of microcalcifications and small nodular density co ntinue to remain stable. There are no new spiculated masses nor new malignant appearing microcalcification groups. There is no significant architectural distortion nor skin thickening-retraction. IMPRESSION: Stable findings. No radiographic evidence of malignancy. BI-RADS Category 2 - Benign Findings Breast Density - Category B - Scattered areas of fibroglandular density Breast density Category C or D implies that the patient has dense breast tissue. Dense breast tissue can make it harder to find cancer on a mammogram. Dense breast tissue is also associated with an incr eased risk of breast cancer. This information about the result of the mammogram report was provided to the patient to raise their awareness. Use this report when you speak with the patient about their risks for breast cancer, which includes their family history. At that time, you may recommend additional screening tests (Ultrasoun d or MRI) as these tests may add significant information. A negative radiographic report should not delay biopsy if a dominant or clinically suspicious mass is present. Up to ten percent of cancers are not identified on mammography. A negative report may reinforce clinical impression. Adenosis and dense breasts may obscure an underlying neoplasm. False positive reports average 6 to 10%. Patient will receive a letter notifying them of these results.
== END ==
PROVIDERS: PCP Internal Medicine; Visit Provider Obstetrics & Gynecology Gynecology
DX: Z12.31 Encounter for screening mammogram for malignant neoplasm of breast (principal)
CPT/HCPCS: 77063; 77067

== ENCOUNTER 2023-11-21 17:49 | Outpatient (CLI) | payer BC, SELFPAY ==
[2023-11-21 16:56] LABS: Albumin 3.5 g/dL (3.4-5.0); Anion Gap 10.2 mmol/L (3-11); BUN 21 mg/dL (7-18); CO2 26.8 mmol/L (21.0-32.0); CREATININE 0.8 mg/dL (0.55-1.02); Calcium 9.6 mg/dL (8.5-10.1); Chloride 103 mmol/L (98-107); Estimated GFR 83.26 (mL/min/1.73m2); Glucose 110 mg/dL (74-106); Potassium 3.7 mmol/L (3.5-5.1); Sodium 140 mmol/L (136-145)
[2023-11-21 17:35] LABS: COMMENT (LAB VIEW ONLY) 94.17 mg/dL
== END 2023-11-21 17:50 | disposition home or self-care (01) ==
LOC: LBO 17:55
PROVIDERS: PCP Internal Medicine; Visit Provider Nurse Practitioner
DX: Z12.4 Encounter for screening for malignant neoplasm of cervix (principal)
CPT/HCPCS: 36415; 80048; 81003; 82040; 82565; 84156

== ENCOUNTER 2023-12-02 10:54 | Outpatient (REF) | payer BC, SELFPAY ==
[2023-12-02 16:17] LABS: Hemoglobin A1C 6.7 % (<5.7)
== END 2023-12-02 10:55 | disposition home or self-care (01) ==
LOC: NCHCN 10:54
PROVIDERS: PCP Internal Medicine; Visit Provider Family Medicine
DX: E11.9 Type 2 diabetes mellitus without complications (principal)
CPT/HCPCS: 83036

== ENCOUNTER 2024-04-29 03:39 | Outpatient (CLI) | payer BC, SELFPAY ==
[2024-04-29 13:35] LABS: Abs Immature Grans 0.05 10^3/uL (0.0-0.06); Absolute Basophil Count 0.09 10^3/uL (0.0-0.2); Absolute Lymphocyte Count 1.31 10^3/uL (1.2-3.4); Absolute Monocyte Count 0.57 10^3/uL (0.1-0.8); Absolute Neutrophil Count 5.91 10^3/uL (1.2-6.7); Basophils % 1.1 %; Eosinophils % 2.5 %; HCT 44.5 % (36.0-46.0); HGB 14.8 g/dL (11.2-15.7); Immature Grans % 0.6 %; Lymphocytes % 16.1 %; MCH 29.9 pg (27.0-33.0); MCHC 33.3 % (32.0-36.0); MCV 90 fL (80-95); MPV 11.2 fL (8.0-11.0); Neutrophils % 72.7 %; Platelet Count 231 10^3/uL (130-400); RBC 4.95 10^6/uL (3.93-5.22); RDW 14.4 % (11.7-14.6); RDW-SD 47.4 fL; WBC 8.13 10^3/uL (4.4-10.8)
[2024-04-29 13:44] LABS: Bacteria Negative HPF (Negative); C & S Indicated? No; Casts Negative LPF (Negative); Crystals Negative HPF (Negative); Epithelial Cells Rare HPF (Negative); Mucus Negative (Negative); RBC Negative HPF (0-2); WBC Negative HPF (0-5)
[2024-04-29 13:59] LABS: COMMENT (LAB VIEW ONLY) 42.08 mg/dL; PROTEIN 71.7 mg/dL
[2024-04-29 14:08] LABS: COMMENT (LAB VIEW ONLY) 42.38 mg/dL
[2024-04-29 14:09] LABS: Microalb ug/mg Crea 1326.6 ug/mg Cr
[2024-04-29 14:24] LABS: Albumin 4.1 g/dL (3.4-5.0); Anion Gap 11.2 mmol/L (3-11); BUN 20 mg/dL (7-18); CO2 27.8 mmol/L (21.0-32.0); CREATININE 0.9 mg/dL (0.55-1.02); Chloride 102 mmol/L (98-107); Estimated GFR 71.83 (mL/min/1.73m2); Ferritin 165 ng/mL (8-252); Glucose 180 mg/dL (74-106); PHOSPHORUS 4.9 mg/dL (2.6-4.7); Potassium 3.9 mmol/L (3.5-5.1); Sodium 141 mmol/L (136-145)
[2024-04-29 15:25] LABS: Iron 74 ug/dL (50-170); Total Iron Binding Capacity 320 ug/dL (250-450); Transferrin Sat 23 % (15-50)
[2024-04-29 22:28] LABS: Parathyroid Hormone,Intact 48 pg/mL (19-88)
[2024-05-04 12:36] LABS: Phospholipase A2 Recep, ELISA <2 RU/mL
[2024-05-04 15:53] LABS: PLA2R, Immunoflurescence Negative (Negative)
[2024-06-15 13:38] LABS: THSD7A Ab Negative (Negative)
== END 2024-04-29 03:40 | disposition home or self-care (01) ==
LOC: LBO 03:39
PROVIDERS: PCP Internal Medicine; Visit Provider Nurse Practitioner
DX: N02.2 Recurrent and persistent hematuria with diffuse membranous glomerulonephritis (principal)
CPT/HCPCS: 36415; 80048; 82306; 83520; 86255; 81015; 82040; 82043; 82565; 82570; 82728; 83540; 83550; 83970; 84100; 84156; 85025

== ENCOUNTER 2024-08-05 08:57 | Outpatient (CLI) | payer BC, SELFPAY ==
[2024-08-05 10:07] LABS: Vitamin D 25 Total 25.7 ng/mL (30-100)
[2024-08-05 10:12] LABS: Vitamin B12 274 pg/mL (193-986)
[2024-08-06 13:14] LABS: Ro60 Ab, IgG <7.0 CU (<20.0); SS-A/Ro, IgG <2.3 CU (<20.0); SS-B (La) Ab, IgG <3.3 CU (<20.0)
[2024-08-07 11:14] LABS: Zinc, S 108 mcg/dL (60-106)
[2024-08-10 02:22] LABS: Pyridoxal 5-Phosphate (PLP), P 11 mcg/L (5-50)
== END 2024-08-05 08:58 | disposition home or self-care (01) ==
LOC: LBO 08:57
PROVIDERS: PCP Internal Medicine; Visit Provider Family Medicine
DX: R68.2 Dry mouth, unspecified (principal); E55.9 Vitamin D deficiency, unspecified
CPT/HCPCS: 36415; 82306; 84630; 82607; 84207; 86235

== ENCOUNTER 2024-11-06 15:56 | Outpatient (CLI) | payer BC, SELFPAY ==
[2024-11-06 15:47] LABS: Abs Immature Grans 0.03 10^3/uL (0.0-0.06); Absolute Basophil Count 0.12 10^3/uL (0.0-0.2); Absolute Eosinophil Count 0.16 10^3/uL (0.0-0.7); Absolute Lymphocyte Count 1.73 10^3/uL (1.2-3.4); Absolute Monocyte Count 0.65 10^3/uL (0.1-0.8); Absolute Neutrophil Count 5.64 10^3/uL (1.2-6.7); Basophils % 1.4 %; Eosinophils % 1.9 %; HCT 47.9 % (36.0-46.0); HGB 15.9 g/dL (11.2-15.7); Immature Grans % 0.4 %; Lymphocytes % 20.8 %; MCH 29.8 pg (27.0-33.0); MCHC 33.2 % (32.0-36.0); MCV 90 fL (80-95); MPV 11.2 fL (8.0-11.0); Monocytes % 7.8 %; Neutrophils % 67.7 %; Platelet Count 235 10^3/uL (130-400); RBC 5.33 10^6/uL (3.93-5.22); RDW 13.9 % (11.7-14.6); RDW-SD 45.6 fL; WBC 8.33 10^3/uL (4.4-10.8)
[2024-11-06 16:13] LABS: Albumin 4.3 g/dL (3.4-5.0); Anion Gap 7.4 mmol/L (3-11); BUN 24 mg/dL (7-18); CO2 28.6 mmol/L (21.0-32.0); COMMENT (LAB VIEW ONLY) 23.18 mg/dL; CREATININE 0.9 mg/dL (0.55-1.02); Calcium 10.3 mg/dL (8.5-10.1); Chloride 103 mmol/L (98-107); Estimated GFR 71.83 (mL/min/1.73m2); Glucose 131 mg/dL (74-106); PROTEIN 84.4 mg/dL; Prot/Crea Ur Ratio 3.64; Sodium 139 mmol/L (136-145)
== END 2024-11-06 15:57 | disposition home or self-care (01) ==
LOC: LBO 15:57
PROVIDERS: PCP Internal Medicine; Visit Provider Nurse Practitioner
DX: N05.2 Unspecified nephritic syndrome with diffuse membranous glomerulonephritis (principal)
CPT/HCPCS: 36415; 80048; 82040; 82565; 84156; 85025

== ENCOUNTER 2024-11-23 17:59 | Outpatient (CLI) | payer BC, SELFPAY ==
[2024-11-26 11:02] LABS: Phospholipase A2 Recep, ELISA <2 RU/mL
[2024-12-25 12:07] LABS: PLA2R, Immunoflurescence Negative (Negative); THSD7A Ab Negative (Negative)
== END 2024-11-23 18:00 | disposition home or self-care (01) ==
LOC: LBO 18:02
PROVIDERS: PCP Internal Medicine; Visit Provider Nurse Practitioner
DX: N02.2 Recurrent and persistent hematuria with diffuse membranous glomerulonephritis (principal)
CPT/HCPCS: 36415; 83520; 86255

== ENCOUNTER 2024-12-18 00:49 | Outpatient (CLI) | payer BC, SELFPAY ==
--- NOTE | 2024-12-18 07:45 | DI.MAMMO_ITS ---
Exam(s) MAMMO SCREENING EXAM: MAMMO SCREENING CLINICAL HISTORY: SCREENING, Z12.39. TECHNIQUE: Bilateral full field digital CC and MLO mammographic images were obtained with 3D tomosyn thesis and utilizing computer aided detection (CAD). COMPARISON: Prior mammograms were reviewed. FINDINGS: No new right breast findings. In the left breast previously described microcalcification group continues to remain stable, with min imal if any significant change compared to prior mammograms dating back to 2016. There are no new spiculated masses nor new malignant appearing microcalcification groups. There is no significant architectural distortion nor skin thickening-retraction. IMPRESSION: Stable benign findings. No radiographic evidence of malignancy. BI-RADS Category 2 - Benign Findings Breast Density - Category B - Scattered areas of fibroglandular density Breast density Category C or D implies that the patient has dense breast tissue. Dense breast tissue can make it harder to find cancer on a mammogram. Dense breast tissue is also associated with an incr eased risk of breast cancer. This information about the result of the mammogram report was provided to the patient to raise their awareness. Use this report when you speak with the patient about their risks for breast cancer, which includes their family history. At that time, you may recommend additional screening tests (Ultrasoun d or MRI) as these tests may add significant information. A negative radiographic report should not delay biopsy if a dominant or clinically suspicious mass is present. Up to ten percent of cancers are not identified on mammography. A negative report may reinforce clinical impression. Adenosis and dense breasts may obscure an underlying neoplasm. False positive reports average 6 to 10%. Patient will receive a letter notifying them of these results.
== END 2024-12-18 01:09 ==
LOC: DI 00:49
PROVIDERS: PCP Internal Medicine; Visit Provider Obstetrics & Gynecology Gynecology
DX: Z12.31 Encounter for screening mammogram for malignant neoplasm of breast (principal); R92.323 Mammographic fibroglandular density, bilateral breasts; D24.2 Benign neoplasm of left breast
CPT/HCPCS: 77063; 77067

== ENCOUNTER 2025-02-18 09:36 | Outpatient (REF) | payer BC, SELFPAY ==
[2025-02-18 15:31] LABS: Abs Immature Grans 0.04 10^3/uL (0.0-0.06); Absolute Basophil Count 0.09 10^3/uL (0.0-0.2); Absolute Lymphocyte Count 1.21 10^3/uL (1.2-3.4); Absolute Monocyte Count 0.55 10^3/uL (0.1-0.8); Absolute Neutrophil Count 4.48 10^3/uL (1.2-6.7); Basophils % 1.4 %; HCT 41.6 % (36.0-46.0); HGB 13.9 g/dL (11.2-15.7); Immature Grans % 0.6 %; Lymphocytes % 18.4 %; MCH 30.3 pg (27.0-33.0); MCHC 33.4 % (32.0-36.0); MCV 91 fL (80-95); Monocytes % 8.4 %; Neutrophils % 68.2 %; Platelet Count 204 10^3/uL (130-400); RBC 4.58 10^6/uL (3.93-5.22); RDW 14.1 % (11.7-14.6); RDW-SD 47.2 fL; WBC 6.57 10^3/uL (4.4-10.8)
[2025-02-18 16:06] LABS: ALT 32 U/L (14-59); AST 16 U/L (15-37); Albumin 3.9 g/dL (3.4-5.0); Alkaline Phosphatase 81 U/L (46-116); Anion Gap 9.4 mmol/L (3-11); BUN 20 mg/dL (7-18); Bilirubin, Total 0.6 mg/dL (0.2-1.0); CO2 25.6 mmol/L (21.0-32.0); CREATININE 0.8 mg/dL (0.55-1.02); Calcium 9.8 mg/dL (8.5-10.1); Chloride 105 mmol/L (98-107); Estimated GFR 82.74 (mL/min/1.73m2); Glucose 191 mg/dL (74-106); NT-proBNP 31 pg/mL (<300); Potassium 4.3 mmol/L (3.5-5.1); Sodium 140 mmol/L (136-145); TSH (W/Ref FT4) 1.77 uIU/mL (0.36-3.74)
[2025-02-19 10:16] LABS: HIV-1/2 Ag & Ab Screen Negative (Negative)
[2025-02-20 03:53] LABS: Hepatitis C Ab w Rflx HCV PCR Negative (Negative)
== END 2025-02-18 09:37 | disposition home or self-care (01) ==
LOC: NCHCN 09:36
PROVIDERS: PCP Family Medicine; Visit Provider Family Medicine
DX: I10 Essential (primary) hypertension (principal); Z11.4 Encounter for screening for human immunodeficiency virus [HIV]; Z11.59 Encounter for screening for other viral diseases; R60.0 Localized edema; R06.09 Other forms of dyspnea
CPT/HCPCS: 80053; 86803; 87389; 83880; 84443; 85025

== ENCOUNTER 2025-02-24 01:39 | Outpatient (CLI) | payer BC, SELFPAY ==
--- NOTE | 2025-02-24 | DI.RAD_ITS ---
Exam(s) XR CHEST 2V PA LATERAL EXAM: XR CHEST 2V PA LATERAL CLINICAL HISTORY: R06.09 Other forms of dyspnea, dyspnea on exertion TECHNIQUE: 2D digital imaging was performed of the chest. Two images were obtained. PA and lateral views were obtained. COMPARISON: CR CHEST 2 VIEWS PA,LAT from 12/19/2015 CR,XR XR PORTABLE CHEST AP from 04/19/2023 FINDINGS: The patient is slightly rotated. MEDIASTINUM: Normal. HEART: Normal. PULMONARY VASCULATURE: Normal. LUNGS: Clear. PLEURAL SPACE: No pleural effusion or pneumothorax. BONE:Within normal limits for the patient's age. OTHER FINDINGS:Normal. IMPRESSION: No acute pulmonary findings. DATA REPOSITORY: RADIATION DOSE DELIVERED:
== END 2025-02-24 01:59 ==
LOC: DI 01:39
PROVIDERS: PCP Family Medicine; Visit Provider Family Medicine
DX: R06.09 Other forms of dyspnea (principal)
CPT/HCPCS: 71046

== ENCOUNTER 2025-04-26 16:03 | Outpatient (REF) | payer BC, SELFPAY ==
[2025-04-26 16:59] LABS: Anion Gap 11.1 mmol/L (3-11); BUN 32 mg/dL (7-18); CO2 24.9 mmol/L (21.0-32.0); Calcium 9.8 mg/dL (8.5-10.1); Chloride 102 mmol/L (98-107); Estimated GFR 56.11 (mL/min/1.73m2); Glucose 241 mg/dL (74-106); Potassium 4.4 mmol/L (3.5-5.1); Sodium 138 mmol/L (136-145)
== END 2025-04-26 16:04 | disposition home or self-care (01) ==
LOC: NCHCN 16:03
PROVIDERS: PCP Family Medicine; Visit Provider Family Medicine
DX: I10 Essential (primary) hypertension (principal)
CPT/HCPCS: 80048

== ENCOUNTER 2025-06-21 16:02 | Outpatient (REF) | payer BC, SELFPAY ==
[2025-06-21 16:11] LABS: Abs Immature Grans 0.06 10^3/uL (0.0-0.06); HCT 47.9 % (36.0-46.0); HGB 15.7 g/dL (11.2-15.7); Immature Grans % 0.9 %; MCH 29.3 pg (27.0-33.0); MCHC 32.8 % (32.0-36.0); MCV 90 fL (80-95); MPV 12.2 fL (8.0-11.0); Platelet Count 226 10^3/uL (130-400); RBC 5.35 10^6/uL (3.93-5.22); RDW 14.3 % (11.7-14.6); RDW-SD 46.5 fL; WBC 6.97 10^3/uL (4.4-10.8)
[2025-06-21 16:32] LABS: Hemoglobin A1C 7.2 % (<5.7)
[2025-06-21 16:40] LABS: Iron 83 ug/dL (50-170); Total Iron Binding Capacity 361 ug/dL (250-450); Transferrin Sat 23 % (15-50)
[2025-06-21 17:43] LABS: Anion Gap 18.3 mmol/L (3-11); BUN 23 mg/dL (7-18); CO2 19.7 mmol/L (21.0-32.0); Calcium 10.0 mg/dL (8.5-10.1); Chloride 105 mmol/L (98-107); Cholesterol 164 mg/dL (<200); Estimated GFR 82.23 (mL/min/1.73m2); Ferritin 188 ng/mL (8-252); Glucose 212 mg/dL (74-106); HDL Cholesterol 44 mg/dL (>or=50); Potassium 4.2 mmol/L (3.5-5.1); Sodium 143 mmol/L (136-145); TSH (W/Ref FT4) 2.23 uIU/mL (0.36-3.74); Triglyceride 451 mg/dL (<150)
[2025-06-21 18:10] LABS: LDL CHOLESTEROL 59 mg/dL (<100)
== END 2025-06-21 16:03 | disposition home or self-care (01) ==
LOC: NCHCN 16:02
PROVIDERS: PCP Family Medicine; Visit Provider Family Medicine
DX: R53.83 Other fatigue (principal); E11.9 Type 2 diabetes mellitus without complications; I10 Essential (primary) hypertension
CPT/HCPCS: 80048; 80061; 83721; 82728; 83036; 83540; 83550; 84443; 85025

== ENCOUNTER 2025-06-23 14:23 | Outpatient (REF) | payer BC, SELFPAY ==
[2025-06-23 15:51] LABS: Glucose >=1000 mg/dL (Negative)
[2025-06-23 15:57] LABS: C & S Indicated? No; RBC 0-2 HPF (0-2); WBC Negative HPF (0-5)
== END 2025-06-23 14:24 | disposition home or self-care (01) ==
LOC: NCHCN 14:23
PROVIDERS: PCP Family Medicine; Visit Provider Family Medicine
DX: E11.9 Type 2 diabetes mellitus without complications (principal)
CPT/HCPCS: 81003; 81015; 82010; 87086

== ENCOUNTER 2025-08-21 15:58 | Outpatient (REF) | payer BC, SELFPAY ==
[2025-08-21 22:12] LABS: C & S Indicated? No; RBC Negative HPF (0-2); WBC Negative HPF (0-5)
== END 2025-08-21 15:59 | disposition home or self-care (01) ==
LOC: LBN 15:58
PROVIDERS: PCP Family Medicine; Visit Provider Nurse Practitioner Family
DX: R30.0 Dysuria (principal)
CPT/HCPCS: 81015; 87086

== ENCOUNTER 2025-08-24 10:46 | Outpatient (REF) | payer BC, SELFPAY ==
[2025-08-24 15:38] LABS: Anion Gap 10.6 mmol/L (3-11); BUN 18 mg/dL (9-23); CO2 26.4 mmol/L (20.0-31.0); Calcium 9.9 mg/dL (8.3-10.6); Chloride 105 mmol/L (98-107); Glucose 145 mg/dL (74-106); Potassium 4.4 mmol/L (3.5-5.1); Sodium 142 mmol/L (136-145)
== END 2025-08-24 10:47 | disposition home or self-care (01) ==
LOC: NCHCN 10:46
PROVIDERS: PCP Family Medicine; Visit Provider Family Medicine
DX: I10 Essential (primary) hypertension (principal)
CPT/HCPCS: 80048